=== PATIENT | male | born 1970 | race Caucasian/White ===

== ENCOUNTER 2021-12-24 20:40 | Inpatient (IN) | payer BC ==
[~2021-12-24] VITALS: Ht 182.9 cm; Wt 67.6 kg
[2021-12-24 20:40] VITALS: BP 140/94
--- NOTE | 2021-12-24 20:46 | NUR ---
PT RONEL AGUILAR. TAKEN TO BED 11
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
--- NOTE | 2021-12-24 20:55 | NUR ---
Dr. Cornejo examining patient.
[2021-12-24] MEDS ORDERED: NACL 0.9% 1,000 ML IV ONE ×2 (21:00→22:30)
[2021-12-24] MEDS ORDERED: MORPHINE SULFATE 2 MG/ML SYR IVP ONE (21:00)
--- NOTE | 2021-12-24 21:13 | NUR ---
KEG HEADER AT BEDSIDE
[2021-12-24 21:20] LABS: BASOPHILS % (AUTO) 0.1 % (0.0-2.0); HEMATOCRIT 53.8 % (36-52); HEMOGLOBIN 18.1 g/dL (12.0-18.0); LYMPHOCYTES # (AUTO) 0.3 K/uL (2.0-11.5); LYMPHOCYTES % (AUTO) 1.9 % (20.5-51.1); MEAN CORPUSCULAR HEMOGLOBIN 32 pg (27-31); MEAN CORPUSCULAR HGB CONC 34 g/dL (33-37); MEAN CORPUSCULAR VOLUME 94.9 fL (80-94); MONOCYTES # (AUTO) 1.2 K/uL (0.8-1.0); MONOCYTES % (AUTO) 6.3 % (1.7-9.3); NEUTROPHILS # (AUTO) 16.9 K/uL (1.8-7.7); NEUTROPHILS % (AUTO) 91.7 % (42.2-75.2); PLATELET COUNT (AUTO) 273 K/uL (140-450); RED BLOOD CELL COUNT(AUTO) 5.67 MIL/uL (4.20-6.10); RED CELL DISTRIBUTION WIDTH 14.6 % (11.6-13.7); WHITE BLOOD COUNT (AUTO) 18.4 K/uL (4.8-10.8)
[2021-12-24] MEDS ORDERED: VANCOMYCIN 1,000 MG in DEXTROSE 5% 250 ML IV ONE (21:45)
[2021-12-24] MEDS ORDERED: PIPERACILLIN/TAZOBACTAM 3.375 GM in DEXTROSE 5% 50 ML IV ONE (21:45)
[2021-12-24 21:49] LABS: ALBUMIN 4.4 g/dL (3.4-5.0); ASPARTATE AMINOTRANSFERASE 49 U/L (15-37); CARBON DIOXIDE 21.4 mmol/L (21-32); CHLORIDE 124 mmol/L (98-107); GFR ARICAN-AMERICAN 13 mL/min (>90); GLUCOSE 249 mg/dL (74-106); POTASSIUM 3.4 mmol/L (3.5-5.1)
[2021-12-24 21:52] LABS: CREATININE 5.9 mg/dL (0.6-1.3); SALICYLATE < 2.8 mg/dL (2.8-20.0); SODIUM SERUM 163 mmol/L (136-145); UREA NITROGEN, BLOOD 75 mg/dL (7-18)
[2021-12-24 21:53] LABS: ACETAMINOPHEN < 0.5 ug/ml (10-30)
--- NOTE | 2021-12-24 21:57 | NUR ---
XRAY AT BEDSIDE
[2021-12-24] MEDS ORDERED: PIPERACILLIN/TAZOBACTAM 3.375 GM VIAL IV ONE (22:09)
[2021-12-24] MEDS ORDERED: NACL 0.9% 500 ML IV ONE (22:35)
[2021-12-24] MEDS ORDERED: VANCOMYCIN 1,000 MG VIAL ONE (22:39)
--- NOTE | 2021-12-24 22:39 | NUR ---
RT AT BEDSIDE FOR ABG
--- NOTE | 2021-12-24 22:50 | NUR ---
VONDA/LUCAS COLLECTED AND WALKED TO LAB
--- NOTE | 2021-12-24 23:16 | NUR ---
ULTRASOUND AT BEDSIDE
[2021-12-24] MEDS ORDERED: SODIUM PHOS / POTASSIUM PHOS 1 PKT PDR PO PRN (23:30)
[2021-12-24] MEDS ORDERED: ACETAMINOPHEN 325 MG TAB PO PRN (23:30)
[2021-12-24] MEDS ORDERED: DEXTROSE 50% 50 ML SYR IVP PRN (23:30)
[2021-12-24] MEDS ORDERED: POTASSIUM CHLORIDE 10 MEQ TABER PO PRN (23:30)
[2021-12-24] MEDS ORDERED: DOCUSATE SODIUM 100 MG GELCAP PO PRN (23:30)
[2021-12-24] MEDS ORDERED: MAGNESIUM OXIDE 400 MG TAB PO PRN (23:30)
[2021-12-24] MEDS ORDERED: ONDANSETRON 4 MG/2 ML VIAL IM/IVP PRN (23:30)
--- NOTE | 2021-12-24 23:33 | NUR ---
PT TAKEN TO CT
--- NOTE | 2021-12-24 23:43 | NUR ---
PT RETURN FROM CT
--- NOTE | 2021-12-24 23:57 | NUR ---
INDEPENDENT SALES REPRESENTATIVE AT BEDSIDE FOR REDRAW
--- NOTE | 2021-12-25 00:03 | NUR ---
PT OXYGEN TITRATED TO 1 L/MIN. SPO2 @94%
--- NOTE | 2021-12-25 00:33 | NUR ---
# 16 FR Lewis catheter with 10 ml utilizing sterile technique. Immediate return of 500 ml YELLOW CLEAR urine noted. Bedside drainage bag placed below level of bladder. Urine sample collected and sent to lab. Pt tolerated procedure WELL.
[2021-12-25 00:41] LABS: MAGNESIUM 3.1 mg/dL (1.8-2.4); PHOSPHORUS 1.7 mg/dL (2.5-4.9)
[2021-12-25 01:59] LABS: ANION GAP 21.8 (8-16); POTASSIUM 3.8 mmol/L (3.5-5.1)
[2021-12-25 02:03] LABS: CREATININE 6.4 mg/dL (0.6-1.3)
[2021-12-25 02:05] LABS: BARBITURATE, URINE NEGATIVE ng/ml (NEG <=200); BENZODIAZEPINE, URINE POSITIVE ng/mL (NEG <=200); CANNABINOID, URINE NEGATIVE ng/mL (NEG <=50); COCAINE, URINE NEGATIVE ng/mL (NEG <=300); PHENCYCLIDINE SCREEN,URINE NEGATIVE ng/mL (NEG <=25)
[2021-12-25] MEDS: NACL 0.45% 1,000 ML IV SCH ×4 (02:05→22:05)
[2021-12-25 02:06] LABS: OPIATE, URINE NEGATIVE ng/mL (NEG <=2000); URINE TOTAL PROTEIN 131.6 mg/dL (0-12)
[2021-12-25] MEDS: NACL 0.9% 1,000 ML IV SCH ×2 (02:24→07:09)
[2021-12-25] MEDS: INSULIN LISPRO SLIDING SCALE 100 UNITS/ML VIAL SUBQ PRN ×4 (02:33→20:33)
--- NOTE | 2021-12-25 03:43 | NUR ---
Patient appears to be resting comfortably in bed. Vital Signs within normal limits. Respirations even and unlabored.
--- NOTE | 2021-12-25 05:27 | NUR ---
MORNING LABS DRAWN
[2021-12-25 05:57] LABS: ANION GAP 19.1 (8-16); CARBON DIOXIDE 21.2 mmol/L (21-32); CREATININE 5.8 mg/dL (0.6-1.3); POTASSIUM 4.3 mmol/L (3.5-5.1)
[2021-12-25 06:14] LABS: BASOPHILS % (AUTO) 0.2 % (0.0-2.0); HEMATOCRIT 49.3 % (36-52); HEMOGLOBIN 16.5 g/dL (12.0-18.0); LYMPHOCYTES # (AUTO) 1.3 K/uL (2.0-11.5); LYMPHOCYTES % (AUTO) 7.5 % (20.5-51.1); MEAN CORPUSCULAR HEMOGLOBIN 32 pg (27-31); MEAN CORPUSCULAR HGB CONC 34 g/dL (33-37); MEAN CORPUSCULAR VOLUME 96.3 fL (80-94); MONOCYTES # (AUTO) 1.6 K/uL (0.8-1.0); MONOCYTES % (AUTO) 8.8 % (1.7-9.3); NEUTROPHILS # (AUTO) 14.9 K/uL (1.8-7.7); NEUTROPHILS % (AUTO) 83.5 % (42.2-75.2); PLATELET COUNT (AUTO) 159 K/uL (140-450); RED BLOOD CELL COUNT(AUTO) 5.12 MIL/uL (4.20-6.10); RED CELL DISTRIBUTION WIDTH 14.8 % (11.6-13.7); WHITE BLOOD COUNT (AUTO) 17.8 K/uL (4.8-10.8)
--- NOTE | 2021-12-25 07:21 | NUR ---
Pt report given to ARJUN ALEGRIA. Transfer of care at this time.
--- NOTE | 2021-12-25 07:21 | NUR ---
REPORT RECIEVED FROM BEREKET BLOCK. ASSUMED CARE AT THIS TIME
--- NOTE | 2021-12-25 07:24 | NUR ---
Micheline floyd in [facility] - 12/25/21 at 0837 by PHSEP REPORT RECIEVED FROM BEREKET JI TRANSFER OF CARE AT THIS TIME
--- NOTE | 2021-12-25 07:45 | NUR ---
PT AT REST AND SLEEPING SUPINE POSITION. NO VISIBLE DISTRESS. RESPIRATOINS EVEN AND UNLABORED. PT ON SHIFT PRODUCTION SUPERVISOR, BED AT LOWEST POSITION, BED RAILS UP X2. SEIZURE PADS IN PLACE
[2021-12-25] MEDS: BLOOD GLUCOSE MONITORING 1 DEV DEV FS SCH ×4 (07:58→20:33)
--- NOTE | 2021-12-25 09:03 | NUR ---
PATIENT HAS BEEN SCREENED AND CATEGORIZED HIGH NUTRITION RISK. PATIENT WILL BE SEEN WITHIN 1-2 DAYS OF [address]ION. PINA NG RD
[2021-12-25] MEDS: MORPHINE SULFATE 2 MG/ML SYR IVP PRN ×2 (09:16→20:33)
[2021-12-25 11:02] VITALS: BP 152/90
--- NOTE | 2021-12-25 11:02 | NUR ---
PT RECEIVED FROM ER, PT AAOX2, VSS, NAD NOTED. PT HAS CHÁVEZ PLACED IN ER. PT RUNNING IV 0.45% NS @ 150CC. pT AWARE OF POC, SAFETY MEASURES IN PLACE.
[2021-12-25 13:06] LABS: ANION GAP 20.3 (8-16); POTASSIUM 4.3 mmol/L (3.5-5.1)
[2021-12-25 13:08] LABS: CREATININE 5.9 mg/dL (0.6-1.3)
[2021-12-25 14:25] LABS: CREATININE,URINE RANDOM 564 mg/dL (30-125)
[2021-12-25 14:27] LABS: URINE SODIUM, RANDOM 21 mmol/l (40-220)
[2021-12-25 14:32] LABS: APPEARANCE,URINE CLEAR (CLEAR); BILIRUBIN,URINE 1+ (NEGATIVE); BLOOD, URINE 3+ (NEGATIVE); COLOR,URINE BROWN (YELLOW); LEUKOCYTE ESTERASE ,URINE TRACE (NEGATIVE); NITRITE, URINE NEGATIVE (NEGATIVE); PH,URINE 5.5 (5.0-9.0); UGLUCOSE NEGATIVE (NEGATIVE)
[2021-12-25 14:48] LABS: OTHER CASTS, URINE None Seen /LPF (None Seen); WBC,URINE 0-5 /HPF (0-5)
[2021-12-25 14:49] LABS: BARBITURATE, URINE NEGATIVE ng/ml (NEG <=200)
[2021-12-25 14:50] LABS: BENZODIAZEPINE, URINE POSITIVE ng/mL (NEG <=200); CANNABINOID, URINE NEGATIVE ng/mL (NEG <=50); COCAINE, URINE NEGATIVE ng/mL (NEG <=300); OPIATE, URINE POSITIVE ng/mL (NEG <=2000); PHENCYCLIDINE SCREEN,URINE NEGATIVE ng/mL (NEG <=25)
--- NOTE | 2021-12-25 14:52 | NUR ---
DC PLANNIN YRS OLD MALE PATIENT WAS ADMITTED FROM HOME WITH A DX OF RENAL FAILURE, HYPERNATREMIA. PATIENT HAS NO MEDICAL HISTORY. CXR SHOWED NO RADIOGRAPHICALLY ACUTE CARDIOPULMONARY DISEASE. CT HEAD NEGATIVE FOR INTRACRANIAL BLEED. RENAL US SHOWED NO KIDNEY STONE OR HYDRONEPHROSIS. ADMINISTERED IVF, AND CONTINUED HOME MEDS. CONSULTED WITH TOP DISTRIBUTION EXECUTIVE. DC PLANNING TO RETURN HOME WHEN STABLE. CM TO FOLLOW Addendum: 12/27/21 at 1555 by Inna Moss RN DC PLANNING: SEEN BY TOP DISTRIBUTION EXECUTIVE DR SOLIZ DISCONTINUED IVF AND CONTINUE WITH STRICT I&O . CONTINUE IV ABX ROCPEHIN AND HOME MEDS. DC PLAN TO GO HOME WHEN STABLE. CM TO FOLLOW. Addendum: 12/29/21 at 1430 by Inna Moss RN DC PLANNING: FAXED AND CALLED [facility] [phone] SPOKE WITH JOSEE BIRMINGHAM THE SNF ORDERER PER MO WE CAN FAX IT TO [facility], [facility], [facility], [facility] AND JAS[facility] RAPHAEL CM TO FOLLOW Addendum: 01/03/22 at 1255 by Inna Moss RN DC PLANNING RECEIVED A CALL FROM OYSELYN AT [facility] STATED NO BED AVAILABLE TODAY AND SATURDAY WILL HAVE OPEN BED. MOR FROM [facility] WILL COME TO SEE PATIENT. MINERVA TO FOLLOW Addendum: 01/04/22 at 1036 by Nohemy Brothers CM DC PLANNING: MINERVA SPOKE WITH MINERVA TRIPP AT [facility] ([phone]), SHE WILL FAX A LIST OF CONTRACTED SNF'S TO REFER PATIENT TO. MINERVA SPOKE WITH KEITH AT [facility], SHE WAS UNABLE TO REACH THE PATIENTS SISTER TO CONFIRM DC PLAN AFTER SNF, STATES SHE WILL LET CM KNOW TOMORROW IF SHE HAS A BED, COULD NOT CONFIRM TODAY. CM WILL FOLLOW. Addendum: 01/04/22 at 1101 by Nohemy Brothers CM DC PLANNING: MOR FROM [facility] WILL BE ON PREMISES THIS MORNING TO SPEAK WITH THE PATIENT FOR POSSIBLE PLACEMENT. MINERVA WILL FOLLOW. Addendum: 01/04/22 at 1320 by Nohemy Brothers CM DC PLANNING: REPRESENTATIVES FROM [facility] SPOKE WITH THE PATIENT AND HAVE TENTATIVELY ACCEPTED HIM. MINERVA RECEIVED VM FROM JOSEE AT [facility] ASKING FOR A PEER TO PEER WITH THEIR MOLDER VACUUM, NUMBER [phone], INFORMATION GIVEN TO THE ATTENDING MD. MINERVA WILL FOLLOW. Addendum: 01/05/22 at 1346 by Nohemy Brothers CM DC PLANNING: PATIENT DECLINED BY [facility] DUE TO LACK OF BEDS. CM CALLED MINERVA TRIPP AT [facility] ([phone]) WHO ASKED THAT REFERRALS BE SENT TO THREE FACILITIES IN [place] THAT DEAL WITH DIFFICULT PLACEMENTS: [facility] WILL FAX REFERRALS TO SNF'S. CM WILL FOLLOW.
--- NOTE | 2021-12-25 14:53 | NUR ---
Dr. Quiroz at bedside, aware of critical results, will continue with fluids and place order for chem 10 draw at 6pm.
[2021-12-25 16:00] VITALS: BP 136/82
[2021-12-25 18:21] LABS: ANION GAP 17.2 (8-16); CARBON DIOXIDE 22.2 mmol/L (21-32); POTASSIUM 4.4 mmol/L (3.5-5.1)
[2021-12-25 18:24] LABS: CREATININE 5.1 mg/dL (0.6-1.3)
--- NOTE | 2021-12-25 18:29 | NUR ---
PT VSS, NAD NOTED, CRITICAL RESULTS REPORT TO DR. PURVIS, NO NEW ORDERS. PT CONTINUING WITH CHÁVEZ AND IV FLUIDS. SAFETY MEASURES IN PLACE.
--- NOTE | 2021-12-25 19:18 | NUR ---
ENDORSED CARE TO SOFTWARE IMPLEMENTATION SPECIALIST RN FOR FURTHER CARE.
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
[2021-12-25 20:00] VITALS: BP 120/68
--- NOTE | 2021-12-25 20:35 | NUR ---
PT COMPLAIN OF LEG PAIN 7/10 PAIN. MORPHINE GIVEN PER MD ORDER. NO OTHER COMPLAINS.
[2021-12-25] MEDS ORDERED: cefTRIAXone 1,000 MG VIAL ONE (21:00)
--- NOTE | 2021-12-25 21:10 | NUR ---
DOCTOR KAREN ORDERED. ROCEPHIN 1 GM DAILY. ROCEPHIN GIVEN TO PT PER MD ORDER. NO ADVERSE EFFECT NOTED. WILL CONTINUE TO MONITOR THE PT.
--- NOTE | 2021-12-25 23:30 | NUR ---
ENDORSED PT TO FLOOR WORKER TRANSFER BAY ARJUN MONTOYA FOR CONTINUITY OF CARE. PT IS TABLE.
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
[2021-12-26] VITALS: BP 118/65
--- NOTE | 2021-12-26 01:25 | NUR ---
DURING ROUNDS NURSING NOTED PATIENT REMAINED ASLEEP. NO NOTED DISTRESS. NO NOTED S/S TO INDICATE PAIN/DISCOMFORT. SIDE RAILS UP X 2 CALL LIGHT WITHIN REACH. [email or web address]
[2021-12-26] MEDS: NACL 0.45% 1,000 ML IV SCH ×3 (03:16→21:48)
--- NOTE | 2021-12-26 03:40 | NUR ---
PATIENT NOTED IN BED ASLEEP WITHOUT DISTRESS OR DISCOMFORT. SIDE RAILS UP X 2. CALL LIGHT WITHIN REACH. [email or web address]
[2021-12-26 04:00] VITALS: BP 120/71
--- NOTE | 2021-12-26 05:51 | NUR ---
PATIENT'S DRESSING WAS CHANGED AND CHARTED. PATIENT TOLERATED IT WELL. NO COMPLAINTS OF PAIN/DISCOMFORT. SIDE RAILS UP X 3. CALL LIGHT WITHIN REACH FOR ASSISTANCE AND NEEDS. [email or web address]
[2021-12-26 05:54] LABS: BASOPHILS % (AUTO) 0.2 % (0.0-2.0); EOSINOPHILS % (AUTO) 0.2 % (0.0-4.0); HEMATOCRIT 42.7 % (36-52); HEMOGLOBIN 14.5 g/dL (12.0-18.0); LYMPHOCYTES # (AUTO) 1.2 K/uL (2.0-11.5); LYMPHOCYTES % (AUTO) 8.3 % (20.5-51.1); MEAN CORPUSCULAR HEMOGLOBIN 32 pg (27-31); MEAN CORPUSCULAR HGB CONC 34 g/dL (33-37); MEAN CORPUSCULAR VOLUME 95.5 fL (80-94); MONOCYTES % (AUTO) 7.1 % (1.7-9.3); NEUTROPHILS # (AUTO) 12.1 K/uL (1.8-7.7); NEUTROPHILS % (AUTO) 84.2 % (42.2-75.2); PLATELET COUNT (AUTO) 134 K/uL (140-450); RED BLOOD CELL COUNT(AUTO) 4.47 MIL/uL (4.20-6.10); RED CELL DISTRIBUTION WIDTH 15.2 % (11.6-13.7); WHITE BLOOD COUNT (AUTO) 14.3 K/uL (4.8-10.8)
[2021-12-26 07:09] LABS: ANION GAP 19.3 (8-16); CARBON DIOXIDE 18.9 mmol/L (21-32); CREATININE 3.2 mg/dL (0.6-1.3); POTASSIUM 4.2 mmol/L (3.5-5.1)
--- NOTE | 2021-12-26 07:16 | NUR ---
CARLOTTA FROM LAB CALLED WITH CRITICAL LAB VALUES. SODIUM 159, BUN 83, AND CREATININE 3.2. THE LABS ARE TRENDING DOWN BUT BOTH PCP (KAREN) AND TURNTABLE MAN (ANN MARIE) WERE SENT MESSAGES OF THE LAB VALUES. [email or web address]
--- NOTE | 2021-12-26 07:29 | NUR ---
GAVE SHIFT REPORT TO ANGELICA BLOCK, PATIENT WAS STABLE DURING SHIFT REPORT. [email or web address]
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
[2021-12-26 08:00] VITALS: BP 128/72
[2021-12-26] MEDS: BLOOD GLUCOSE MONITORING 1 DEV DEV FS SCH ×4 (08:04→21:00)
--- NOTE | 2021-12-26 09:00 | NUR ---
NO SCHEDULED MEDS GIVEN. PT IS STABLE. NO DISTRESS NOTED. WILL CONTINUE TO MONITOR.
[2021-12-26] MEDS: DEXTROSE 5% 1,000 ML IV SCH (10:51)
[2021-12-26] MEDS: INSULIN LISPRO SLIDING SCALE 100 UNITS/ML VIAL SUBQ PRN ×2 (11:53→22:23)
--- NOTE | 2021-12-26 11:53 | NUR ---
BS CHECK WAS 220. ADMINISTERED 4 UNITS OF INSULIN SQ PER MD ORDERED.
[2021-12-26 12:00] VITALS: BP 132/71
--- NOTE | 2021-12-26 13:50 | NUR ---
CHECKED ON PATIENT. PT IS STABLE. NO DISTRESS NOTED. WILL CONTINUE TO MONITOR.
--- NOTE | 2021-12-26 14:08 | NUR ---
12/26/21 RD INITIAL ASSESSMENT COMPLETED PLEASE REFER TO NUTRITION ASSESSMENT UNDER CARE ACTIVITY FOR ESTIMATED NUTRITIONAL NEEDS. 1. RECOMMEND CCHO60 GM AND RENAL DIET 2. RECOMMEND PROSOURCE BID FOR WOUND HEALING 3. RD TO FOLLOW-UP 7 DAYS, LOW RISK REVIEWED BY PINA NG RD
[2021-12-26 16:00] VITALS: BP 134/78
--- NOTE | 2021-12-26 16:45 | NUR ---
CHANGED AND CLEANED PATIENT UP. KEPT C/D/I/.
--- NOTE | 2021-12-26 19:33 | NUR ---
ENDORSED TO HEALTH AND WELLNESS MANAGER NURSE OF CONTINUITY OF CARE. PT IS STABLE.
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
[2021-12-26 20:00] VITALS: BP 139/79
--- NOTE | 2021-12-26 21:30 | NUR ---
PATIENT WAS GIVEN INSULIN COVERAGE TO 225 GLUCOSE LEVEL. 4 UNITS. PATIENT TOLERATED IT WELL. NO S/S OF RESPIRATORY DISTRESS. NO S/S OF PAIN/DISCOMFORT. CALL LIGHT WITHIN REACH. SIDE RAILS X UP 2 FOR SAFETY AND ADJUSTMENTS. [email or web address]
--- NOTE | 2021-12-26 23:28 | NUR ---
DURING ROUNDS NURSE NOTE PATIENT IN BED ASLEEP. NO NOTED DISTRESS/PAIN. NO NOTED RESPIRATORY DISTRESS. KEPT CLEAN AND DRY NURSING WILL FREQUENT ROOM FOR ASSISTANCE. [email or web address]
[2021-12-27] VITALS: BP 132/72
--- NOTE | 2021-12-27 01:15 | NUR ---
PATIENT IN BED ASLEEP. NO NOTED DISTRESS/PAIN. NO NOTED RESPIRATORY DISTRESS. KEPT CLEAN AND DRY NURSING WILL FREQUENT ROOM FOR ASSISTANCE. [email or web address]
--- NOTE | 2021-12-27 03:42 | NUR ---
PATIENT IN BED ASLEEP. NO NOTED DISTRESS/PAIN. NO NOTED RESPIRATORY DISTRESS. KEPT CLEAN AND DRY NURSING WILL CALL LIGT WITHIN REACH FOR ASSISTANCE. [email or web address]
[2021-12-27 04:00] VITALS: BP 132/82
[2021-12-27 05:24] LABS: BASOPHILS % (AUTO) 0.3 % (0.0-2.0); EOSINOPHILS # (AUTO) 0.1 K/uL (0-0.4); EOSINOPHILS % (AUTO) 1.5 % (0.0-4.0); HEMOGLOBIN 13.4 g/dL (12.0-18.0); LYMPHOCYTES # (AUTO) 1.3 K/uL (2.0-11.5); LYMPHOCYTES % (AUTO) 13.1 % (20.5-51.1); MEAN CORPUSCULAR HEMOGLOBIN 32 pg (27-31); MEAN CORPUSCULAR HGB CONC 34 g/dL (33-37); MEAN CORPUSCULAR VOLUME 94.1 fL (80-94); MONOCYTES # (AUTO) 0.8 K/uL (0.8-1.0); MONOCYTES % (AUTO) 8.4 % (1.7-9.3); NEUTROPHILS # (AUTO) 7.4 K/uL (1.8-7.7); NEUTROPHILS % (AUTO) 76.7 % (42.2-75.2); PLATELET COUNT (AUTO) 111 K/uL (140-450); RED BLOOD CELL COUNT(AUTO) 4.15 MIL/uL (4.20-6.10); RED CELL DISTRIBUTION WIDTH 14.4 % (11.6-13.7); WHITE BLOOD COUNT (AUTO) 9.7 K/uL (4.8-10.8)
--- NOTE | 2021-12-27 05:59 | NUR ---
PATIENT IN BED ASLEEP AFTER CLEANING PATIENT AND BED. URINE WAS EMPTIED AT OVER 2000 MLS. NO NOTED DISTRESS/PAIN. NO NOTED RESPIRATORY DISTRESS. KEPT CLEAN AND DRY NURSING WILL CALL LIGHT WITHIN REACH FOR ASSISTANCE. [email or web address]
[2021-12-27 06:17] LABS: ANION GAP 11.5 (8-16); CARBON DIOXIDE 22.2 mmol/L (21-32); CREATININE 1.1 mg/dL (0.6-1.3); POTASSIUM 3.7 mmol/L (3.5-5.1)
[2021-12-27] MEDS: BLOOD GLUCOSE MONITORING 1 DEV DEV FS SCH ×4 (07:03→21:55)
[2021-12-27] MEDS: DEXTROSE 5% 1,000 ML IV SCH (07:04)
--- NOTE | 2021-12-27 07:37 | NUR ---
MANUAL SHIFT REPORT WAS GIVEN TO SALES OPERATIONS ANALYSTRICKY SANTAMARIA FOR ANGELICA BLOCK TO TAKE OVER CARE FOR THIS PATIENT. [email or web address]
--- NOTE | 2021-12-27 07:44 | NUR ---
GAVE SHIFT REPORT TO ANGELICA BLOCK, PATIENT WAS STABLE DURING CHANGE OF SHIFT. [email or web address]
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
[2021-12-27] MEDS: NACL 0.45% 1,000 ML IV SCH (07:52)
[2021-12-27 08:00] VITALS: BP 148/83
--- NOTE | 2021-12-27 09:00 | NUR ---
NO SCHEDULED MEDS GIVEN. PT IS STABLE. NO DISTRESS NOTED. WILL CONTINUE TO MONITOR.
[2021-12-27] MEDS: INSULIN LISPRO SLIDING SCALE 100 UNITS/ML VIAL SUBQ PRN (11:43)
--- NOTE | 2021-12-27 11:43 | NUR ---
BS CHECK WAS 177. ADMINISTERED 2 UNITS OF INSULIN SQ PER MD ORDERED
[2021-12-27 12:00] VITALS: BP 141/94
[2021-12-27] MEDS: GAUZE TP SCH (12:15)
[2021-12-27] MEDS: SILVER SULFADIAZINE 1% 50 GM JAR TP SCH (12:15)
--- NOTE | 2021-12-27 13:45 | NUR ---
WOUND CARE NURSE AT PATIENT'S BEDSIDE.
[2021-12-27] MEDS: MORPHINE SULFATE 2 MG/ML SYR IVP PRN (13:46)
--- NOTE | 2021-12-27 14:00 | NUR ---
ENDORSED REPORT TO UMAIR CRENSHAW FOR CONTINUITY OF CARE. PT IS STABLE.
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
[2021-12-27 16:00] VITALS: BP 132/82
--- NOTE | 2021-12-27 17:32 | NUR ---
BLOOD SUGAR 155 - REFUSED 2UNITS
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
[2021-12-27 20:00] VITALS: BP 132/82
--- NOTE | 2021-12-27 20:00 | NUR ---
Patient's Plan of Care was discussed and reviewed with ANTONIO DÍAZ.
[2021-12-28] VITALS: BP 152/83
--- NOTE | 2021-12-28 | NUR ---
WANTS THE F/C TO BE TAKEN OUT. EXPLAINED THAT HE NEEDS IT SO THAT HE WILL NOT GET WET. STILL WITH OCC ASIONAL CONFUSION.
[2021-12-28] MEDS: HYDROcodone/APAP 5/325 MG 1 TAB TAB PO PRN ×2 (00:34→12:03)
[2021-12-28] MEDS ORDERED: ZOLPIDEM 5 MG TAB PO PRN (00:45)
--- NOTE | 2021-12-28 01:18 | NUR ---
UNABLE TO SLEEP, MEDICATED WITH AMBIEN PER MD ORDER.
--- NOTE | 2021-12-28 02:18 | NUR ---
SLEEPING COMFORTABLY IN BED, RESPIRATION EVEN AND UNLABORED.
[2021-12-28 04:00] VITALS: BP 141/80
--- NOTE | 2021-12-28 04:00 | NUR ---
CONFUSED, REQUESTING FOR URINAL. EXPLAINED THAT HE DOES NOT NEED ONE BECAUSE HE HAS A CHÁVEZ CATHETER.
[2021-12-28 06:07] LABS: BASOPHILS % (AUTO) 0.3 % (0.0-2.0); EOSINOPHILS # (AUTO) 0.2 K/uL (0-0.4); EOSINOPHILS % (AUTO) 2.1 % (0.0-4.0); HEMATOCRIT 41.3 % (36-52); HEMOGLOBIN 14.2 g/dL (12.0-18.0); LYMPHOCYTES # (AUTO) 1.2 K/uL (2.0-11.5); LYMPHOCYTES % (AUTO) 13.3 % (20.5-51.1); MEAN CORPUSCULAR HEMOGLOBIN 33 pg (27-31); MEAN CORPUSCULAR HGB CONC 34 g/dL (33-37); MEAN CORPUSCULAR VOLUME 94.6 fL (80-94); MONOCYTES # (AUTO) 0.8 K/uL (0.8-1.0); MONOCYTES % (AUTO) 9.2 % (1.7-9.3); NEUTROPHILS # (AUTO) 6.8 K/uL (1.8-7.7); NEUTROPHILS % (AUTO) 75.1 % (42.2-75.2); PLATELET COUNT (AUTO) 116 K/uL (140-450); RED BLOOD CELL COUNT(AUTO) 4.37 MIL/uL (4.20-6.10); RED CELL DISTRIBUTION WIDTH 13.7 % (11.6-13.7); WHITE BLOOD COUNT (AUTO) 9.1 K/uL (4.8-10.8)
[2021-12-28 06:08] LABS: ANION GAP 11.6 (8-16); CARBON DIOXIDE 24.2 mmol/L (21-32); CREATININE 0.9 mg/dL (0.6-1.3); POTASSIUM 3.8 mmol/L (3.5-5.1)
[2021-12-28] MEDS: BLOOD GLUCOSE MONITORING 1 DEV DEV FS SCH ×4 (06:57→22:41)
--- NOTE | 2021-12-28 07:00 | NUR ---
CONDITION REMAIN STABLE. WILL ENDORSE TO AM SHIFT NURSE FOR CONTINUITY OF CARE.
--- NOTE | 2021-12-28 07:30 | NUR ---
RECEIVED REPORT FROM NIGHTSHIFT NURSE. PT A/O X2. NO SOB OR RESPIRATORY DISTRESS. ON RA. STRICT I&O. DENIES PAIN. IV TO SL. NEEDS ALL MET AT THIS TIME. SAFETY MEASURES IN PLACE.
[2021-12-28 08:00] VITALS: BP 136/72
--- NOTE | 2021-12-28 10:08 | NUR ---
PT SLEEPING. RR EVEN & UNLABORED. HOB ELEVATED. SAFETY MEASURES IN PLACE.
[2021-12-28] MEDS: INSULIN LISPRO SLIDING SCALE 100 UNITS/ML VIAL SUBQ PRN ×3 (11:36→22:47)
[2021-12-28] MEDS: GAUZE TP SCH (12:03)
[2021-12-28] MEDS: SILVER SULFADIAZINE 1% 50 GM JAR TP SCH (12:04)
[2021-12-28] MEDS ORDERED: [UNRECOGNIZED DRUG - CODE] TP (12:23)
[2021-12-28] MEDS ORDERED: HUMSLIDE SUBQ (12:23)
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
[2021-12-28] MEDS: GABAPENTIN 300 MG CAP PO SCH (13:01)
[2021-12-28 16:00] VITALS: BP 145/87
--- NOTE | 2021-12-28 19:30 | NUR ---
REPORT GIVEN TO NIGHTSHIFT NURSE FOR CONTINUITY OF CARE.
[2021-12-28 20:00] VITALS: BP 161/68
[2021-12-29 04:00] VITALS: BP 149/95
[2021-12-29 06:17] LABS: ANION GAP 11.7 (8-16); CARBON DIOXIDE 24.1 mmol/L (21-32); POTASSIUM 3.8 mmol/L (3.5-5.1)
[2021-12-29 06:19] LABS: BASOPHILS % (AUTO) 0.1 % (0.0-2.0); EOSINOPHILS # (AUTO) 0.1 K/uL (0-0.4); EOSINOPHILS % (AUTO) 1.4 % (0.0-4.0); HEMATOCRIT 42.8 % (36-52); HEMOGLOBIN 14.8 g/dL (12.0-18.0); LYMPHOCYTES % (AUTO) 8.9 % (20.5-51.1); MEAN CORPUSCULAR HEMOGLOBIN 32 pg (27-31); MEAN CORPUSCULAR HGB CONC 35 g/dL (33-37); MEAN CORPUSCULAR VOLUME 93.7 fL (80-94); MONOCYTES # (AUTO) 0.9 K/uL (0.8-1.0); MONOCYTES % (AUTO) 8.7 % (1.7-9.3); NEUTROPHILS # (AUTO) 8.7 K/uL (1.8-7.7); NEUTROPHILS % (AUTO) 80.9 % (42.2-75.2); PLATELET COUNT (AUTO) 141 K/uL (140-450); RED BLOOD CELL COUNT(AUTO) 4.57 MIL/uL (4.20-6.10); RED CELL DISTRIBUTION WIDTH 13.8 % (11.6-13.7); WHITE BLOOD COUNT (AUTO) 10.8 K/uL (4.8-10.8)
[2021-12-29] MEDS: BLOOD GLUCOSE MONITORING 1 DEV DEV FS SCH ×4 (06:41→22:04)
[2021-12-29] MEDS: INSULIN LISPRO SLIDING SCALE 100 UNITS/ML VIAL SUBQ PRN ×4 (06:44→22:11)
--- NOTE | 2021-12-29 07:30 | NUR ---
PT A/O X3. ABLE TO MAKE NEEDS KNOWN. NO SOB OR RESPIRATORY DISTRESS. ON RA. DENIES PAIN AT THIS TIME. IV TO SL. CHÁVEZ VIA GRAVITY. NEEDS ALL MET AT THIS TIME. SAFETY MEASURES IN PLACE.
[2021-12-29] MEDS: GABAPENTIN 300 MG CAP PO SCH (08:47)
[2021-12-29] MEDS: HYDROcodone/APAP 5/325 MG 1 TAB TAB PO PRN ×2 (11:45→16:45)
--- NOTE | 2021-12-29 11:45 | NUR ---
PRN NORCO GIVEN. SEE EMAR AND PAIN ASSESSMENT & REASSESSMENT.
[2021-12-29] MEDS: SILVER SULFADIAZINE 1% 50 GM JAR TP SCH (13:28)
[2021-12-29] MEDS: GAUZE TP SCH (13:28)
[2021-12-29 16:00] VITALS: BP 142/88
--- NOTE | 2021-12-29 16:45 | NUR ---
PRN NORCO GIVEN. SEE PAIN ASSESSMENT AND REASSESSMENT.
--- NOTE | 2021-12-29 18:51 | NUR ---
PT STABLE. DRESSING C/D/I. DENIES PAIN. ORAL FLUIDS PROVIDED. NEEDS ALL MET AT THIS TIME. ALL SAFETY MEASURES IN PLACE.
--- NOTE | 2021-12-29 19:20 | NUR ---
REPORT GIVEN TO NIGHTSHIFT NURSE FOR CONTINUITY OF CARE.
[2021-12-29 20:00] VITALS: BP 125/82
--- NOTE | 2021-12-29 22:50 | NUR ---
Transfer of care to [facility] per request. Bassam Arevalo RN
--- NOTE | 2021-12-29 22:54 | NUR ---
RECEIVED PATIENT FROM GIOVANNI BLOCK, PATIENT WAS STABLE AT THE TIME PATIENT SWAP. PATIENT ALERT AND ORIENT IN THE BED. REQUEST A WARM BLANKET. PATIENT IS UNABLE TO INFORM OF WHY HE IS IN THE HOSPITAL. SIDE RAILS UP X 2 AND CALL LIGHT IN REACH. FOR ASSISTANCE. IV SITE CLEAN AND PATENT. PATIENT IS AWARE HOW TO USE THE CALL LIGHT. [email or web address]
--- NOTE | 2021-12-30 01:27 | NUR ---
NURSING NOTED PATIENT IN BED ASLEEP. NO NOTED S/S OF PAIN/DISCOMFORT. NO NOTED S/S OF RESPIRATORY DISTRESS. SIDE RAILS UP X 3 FOR SAFETY AND ADJUSTMENTS. CALL LIGHT WITHIN REACH. [email or web address]
--- NOTE | 2021-12-30 03:00 | NUR ---
PATIENT WAS NOTED IN BED ASLEEP. PATIENT'S CHEST NOTED RISING AND FALLING WITHOUT DISTRESS. NO NOTED S/S OF PAIN/DISCOMFORT. SIDE RAILS UP X 3 FOR SAFETY. CALL LIGHT WITHIN REACH FOR ASSISTANCE. [email or web address]
--- NOTE | 2021-12-30 05:24 | NUR ---
DURING NURSING ROUNDS, PATIENT WAS NOTED IN BED ASLEEP. PATIENT'S CHEST NOTED RISING AND FALLING WITHOUT DISTRESS. NO NOTED S/S OF PAIN/DISCOMFORT. SIDE RAILS UP X 3 FOR SAFETY. CALL LIGHT WITHIN REACH FOR ASSISTANCE. [email or web address]
--- NOTE | 2021-12-30 07:19 | NUR ---
ENDORSED PATIENT TO CHAR BLOCK FOR CONTINUITY OF CARE. PATIENT WAS STABLE AT THE CHANGE OF SHIFT. [email or web address]
[2021-12-30 07:25] LABS: BASOPHILS % (AUTO) 0.1 % (0.0-2.0); EOSINOPHILS # (AUTO) 0.3 K/uL (0-0.4); EOSINOPHILS % (AUTO) 2.4 % (0.0-4.0); HEMATOCRIT 42.1 % (36-52); HEMOGLOBIN 14.2 g/dL (12.0-18.0); LYMPHOCYTES # (AUTO) 1.2 K/uL (2.0-11.5); LYMPHOCYTES % (AUTO) 11.7 % (20.5-51.1); MEAN CORPUSCULAR HEMOGLOBIN 32 pg (27-31); MEAN CORPUSCULAR HGB CONC 34 g/dL (33-37); MONOCYTES # (AUTO) 1.1 K/uL (0.8-1.0); MONOCYTES % (AUTO) 10.4 % (1.7-9.3); NEUTROPHILS % (AUTO) 75.4 % (42.2-75.2); PLATELET COUNT (AUTO) 162 K/uL (140-450); RED BLOOD CELL COUNT(AUTO) 4.43 MIL/uL (4.20-6.10); RED CELL DISTRIBUTION WIDTH 13.6 % (11.6-13.7); WHITE BLOOD COUNT (AUTO) 10.6 K/uL (4.8-10.8)
[2021-12-30] MEDS: BLOOD GLUCOSE MONITORING 1 DEV DEV FS SCH ×4 (07:43→20:49)
[2021-12-30 07:59] LABS: ANION GAP 14.7 (8-16); CARBON DIOXIDE 22.4 mmol/L (21-32); CREATININE 0.9 mg/dL (0.6-1.3); POTASSIUM 4.1 mmol/L (3.5-5.1)
[2021-12-30] MEDS: GABAPENTIN 300 MG CAP PO SCH (08:44)
[2021-12-30 11:06] VITALS: BP 131/68
[2021-12-30] MEDS: INSULIN LISPRO SLIDING SCALE 100 UNITS/ML VIAL SUBQ PRN ×3 (11:44→20:50)
[2021-12-30] MEDS: GAUZE TP SCH (13:00)
[2021-12-30] MEDS: SILVER SULFADIAZINE 1% 50 GM JAR TP SCH (13:00)
[2021-12-30 17:04] VITALS: BP 137/90
--- NOTE | 2021-12-30 18:35 | NUR ---
0730 Pt. in bed, call light in reach, no distress 1200 Pt. with no distress, wound care done to keita on legs, pt. denies pain 1400 Pt. sleeping, call light in reach 1800 Pt. needs met, vss, no distress this shift, dressings to wounds d/i, call light in reach
[2021-12-31 04:40] VITALS: BP 129/85
--- NOTE | 2021-12-31 07:30 | NUR ---
RECEIVED BEDSIDE REPORT FROM HOUSEKEEPER AND LAUNDRY ASSISTANT NURSE, FOR CONTINUOUS OF CARE. PT RESTING, NO DISTRESS NOTED, AWAKE ALERT, ABLE TO LET NEEDS KNOWN, IV TO RIGHT FA 22G PATENT INTACT, SL. PT ON ROOM AIR, NO SOB NOTED, INITIAL ASSESSMENT DONE, ALL SAFETY PRECAUTION MET, CALL LIGHT WITHIN REACH, WILL CONTINUE TO MONITOR.
[2021-12-31 08:00] VITALS: BP 144/80
[2021-12-31] MEDS: BLOOD GLUCOSE MONITORING 1 DEV DEV FS SCH ×4 (08:02→20:47)
[2021-12-31] MEDS: GABAPENTIN 300 MG CAP PO SCH (08:30)
[2021-12-31] MEDS: INSULIN LISPRO SLIDING SCALE 100 UNITS/ML VIAL SUBQ PRN ×2 (12:17→20:48)
[2021-12-31] MEDS: SILVER SULFADIAZINE 1% 50 GM JAR TP SCH (12:20)
[2021-12-31] MEDS: GAUZE TP SCH (12:20)
[2021-12-31] MEDS: MORPHINE SULFATE 2 MG/ML SYR IVP PRN (13:31)
--- NOTE | 2021-12-31 13:31 | NUR ---
PT C/O PAIN DURING DRESSING CHANGED, PAIN MEDICATION GIVEN, PT TOLERATED WELL, DRESSING CHANGED. WILL CONTINUE OT MONITOR.
[2021-12-31 16:00] VITALS: BP 133/83
--- NOTE | 2021-12-31 19:30 | NUR ---
ENDORSED PT TO SLITTER AND REWINDER NURSE FOR CONTINUOUS OF CARE.
--- NOTE | 2021-12-31 19:31 | NUR ---
RECEIVED ENDORSEMENT OF PATIENT FROM JASPREET BLOCK, PATIENT WAS STABLE AT CHANGE OF SHIFT. PATIENT IN BED ALERT AND ORIENTED X 4. DRESSING FOR ALL WOUNDS WERE CHANGED AND CLEAN. PATIENT WAS KEPT CLEAN AND DRY. PATIENT WAS ABLE TO VERBALIZE PAIN LEVEL WHICH WAS A 0 TA THIS TIME. CH[place]VEZ INTACT NO NOTED LEAKING. BED LOWERED TO THE LOWEST LEVEL FOR SAFETY. CALL LIGHT WITH IN REACH. PATIENT IS AWARE HOW TO USE THE CALL LIGHT FOR ASSISTANCE AND WANTS. SIDE RAILS UP X 3. [email or web address]
--- NOTE | 2021-12-31 21:45 | NUR ---
PATIENT HAD A BOWEL MOVEMENT. WAS CLEANED AND KEPT DRY. [email or web address]
--- NOTE | 2021-12-31 23:03 | NUR ---
PATIENT NOTED IN BED ASLEEP. WAS ABLE TO TAKE ORAL MEDICATION WITHOUT INCIDENT. NO NOTE S/S OF PAIN/DISCOMFORT. NO NOTED RESPIRATORY DISTRESS. BED AT LOWEST LEVEL. SIDE RAILS UP X 2 FOR SAFETY AND ADJUSTMENT FOR COMFORT. CALL LIGHT WITHIN REACH FOR ASSISTANCE. [email or web address]
--- NOTE | 2022-01-01 | NUR ---
Patient's Plan of Care was discussed and reviewed with ARJUN PATEL
--- NOTE | 2022-01-01 01:43 | NUR ---
PATIENT REMAINS IN BED ASLEEP. BED ALARM ON AND WORKING. NO NOTED S/S OF PAIN/DISCOMFORT. NO NOTED RESPIRATORY DISTRESS. SIDE RAILS UP X 3. CALL LIGHT WITHIN REACH. BED AT THE LOWEST LEVEL. [email or web address]
--- NOTE | 2022-01-01 03:12 | NUR ---
PATIENT COMPLAINED OF PAIN TO HIS PENIS. NURSING NOTED REDDISH ORANGE COLOR TO CHÁVEZ DRAINAGE BAG. NOTIFIED MD FOR ADVISEMENT. PATIENT DENIES PULLING ON THE CATH. NURSING REINFORCED THE CATH TO HIS RIGHT LEG TO PREVENT TUGGING. NURSING WILL AWIT MD CALL BACK FOR ORDERS. [email or web address]
[2022-01-01 04:00] VITALS: BP 149/85
--- NOTE | 2022-01-01 05:21 | NUR ---
IRRIGATED CHÁVEZ CATH WITH SALINE WITH 100MLS. COLOR CHANGED BACK TO YELLOW CLEAR URINE. PATIENT STATES HE WANT IT OUT TO IRRITATION AND DISCOMFORT. COVERING RN CARMINE WILL GIVE PAIN PRN. NURSING WILL REPORT TO AM SHIFT TO FOLLOW UP WITH THE DOCTOR. [email or web address]
[2022-01-01] MEDS: MORPHINE SULFATE 2 MG/ML SYR IVP PRN (05:35)
[2022-01-01] MEDS: BLOOD GLUCOSE MONITORING 1 DEV DEV FS SCH ×4 (07:09→21:42)
--- NOTE | 2022-01-01 07:10 | NUR ---
ENDORSE PATIENT TO [facility] EMERGENCY ROOM CLERK, PATIENT WAS STABLE AT THE CHANGE OF SHIFT. [email or web address]
--- NOTE | 2022-01-01 07:11 | NUR ---
RECEIVED REPORT FROM REPAIR SUPERVISOR NURSE FOR CONTINUITY OF CARE. PT IS AWAKE. A7O4, ABLE TO COMMUNICATE NEEDS. RESPIRATIONS EVEN AND UNLABORED ON RA. NO DISTRESS NOTED. CHÁVEZ CATHETER IN PLACE. IV SITE ON RFA, SL. NOTED BANDAGES ON LEFT ARM, LEG FOOT AND RIGHT FOOT DRY AND INTACT. CALL LIGHT WITHIN REACH. SAFETY PRECAUTIONS IN PLACE. WILL CONTINUE TO MONITOR.
[2022-01-01 08:00] VITALS: BP 138/93
[2022-01-01] MEDS: GABAPENTIN 300 MG CAP PO SCH (08:47)
--- NOTE | 2022-01-01 08:57 | NUR ---
ADMINISTERED SCHEDULED MORNING MEDS. PT TEACHING MEDS GIVEN. PT VERBALIZED UNDERSTANDING. PHYSICAL THERAPIST NOW AT BEDSIDE.
[2022-01-01] MEDS: INSULIN LISPRO SLIDING SCALE 100 UNITS/ML VIAL SUBQ PRN ×3 (12:16→21:42)
[2022-01-01 12:17] LABS: ANION GAP 14.2 (8-16); CARBON DIOXIDE 24.6 mmol/L (21-32); POTASSIUM 3.8 mmol/L (3.5-5.1)
[2022-01-01 12:19] LABS: BASOPHILS % (AUTO) 0.3 % (0.0-2.0); EOSINOPHILS # (AUTO) 0.2 K/uL (0-0.4); EOSINOPHILS % (AUTO) 2.5 % (0.0-4.0); HEMATOCRIT 41.6 % (36-52); HEMOGLOBIN 14.6 g/dL (12.0-18.0); LYMPHOCYTES # (AUTO) 1.1 K/uL (2.0-11.5); MEAN CORPUSCULAR HEMOGLOBIN 33 pg (27-31); MEAN CORPUSCULAR HGB CONC 35 g/dL (33-37); MEAN CORPUSCULAR VOLUME 93.6 fL (80-94); MONOCYTES # (AUTO) 0.9 K/uL (0.8-1.0); MONOCYTES % (AUTO) 10.5 % (1.7-9.3); NEUTROPHILS # (AUTO) 5.9 K/uL (1.8-7.7); NEUTROPHILS % (AUTO) 72.7 % (42.2-75.2); PLATELET COUNT (AUTO) 243 K/uL (140-450); RED BLOOD CELL COUNT(AUTO) 4.44 MIL/uL (4.20-6.10); RED CELL DISTRIBUTION WIDTH 13.4 % (11.6-13.7); WHITE BLOOD COUNT (AUTO) 8.1 K/uL (4.8-10.8)
--- NOTE | 2022-01-01 12:37 | NUR ---
PHYSICAL THERAPY CO-SIGN The Physical Therapy Progress Notes documented by Filleter have been reviewed. Reviewed/Co-Signed by: Trang Lopes Documentation Done by: MICHELA ARREDONDO PTA Addendum: 01/01/22 at 1237 by Trang Lopes PT Amended: Links added.
--- NOTE | 2022-01-01 12:45 | NUR ---
DID ROUNDS. PT EATING LUNCH. NO DISTRESS NOTED. DENIES PAIN. CALL LIGHT WITHIN REACH. SAFETY PRECAUTIONS IN PLACE. WILL CONTINUE TO MONITOR.
[2022-01-01] MEDS: GAUZE TP SCH (13:05)
--- NOTE | 2022-01-01 13:05 | NUR ---
WOUND DRESSING CHANGE DONE. PT TOLERATED WELL. WILL CONTINUE TO MONITOR.
--- NOTE | 2022-01-01 13:14 | NUR ---
RECEIVED ORDER FROM MORPHINE FOR SEVERE PAIN.
--- NOTE | 2022-01-01 15:30 | NUR ---
DISCHARGE PLANNING WILLIAM FAXED PATIENT'S INFORMATION AND CLINICAL PACKET TO [facility] AT WITH COMPLETED CONFIRMATION AT ABOUT 15:00. WILLIAM CALL YOSELYN AT [facility] TO CONFIRM SHE RECEIVED PACKET. PER YOSELYN SHE REVIEW AND DISCUSS PATIENT INFORMATION WELL PATIENT'S SKILLS NEEDS WITH HER TREAD BUILDER AND NOW WITH MINERVA AND WILLIAM. HOWEVER; REPORTED THAT HER TREAD BUILDER WILL NEED FOR PATIENT TO HAVE A DC PLAN FOR AFTER SKILL SERVICES ARE COMPLETED WITH THEIR SNF AGENCY. WILLIAM INFORMED YOSELYN THAT PATIENT HAS A SISTER THAT LIVES IN [place] AND THAT PATIENT HAS REPORTED THAT HE WILL BE GETTING ASSISTANCE FROM HIS SISTER MADELEINE LUCAS , [address] [id number] AFTER HIS DC. YOSELYN STATED THAT SHE WILL LIKE TO MAKE SURE THAT CONTACT WITH FAMILY CAN BE ESTABLISHED BEFORE SNF ADMISSION, THEREFORE; REQUESTED FROM WILLIAM TO PROVIDE WITH PATIENT'S SISTER CONTACT NUMBER AND HOME ADDRESS. KEITH STATED THAT SHE WILL REACH OUT TO FAMILY AND WILL FOLLOW UP WITH CM/WILLIAM. WILLIAM WILL FOLLOW UP NEEDED. WILLIAM ATTEMPTED TO CALL PATIENTS SISTER MADELEINE LUCAS AT . NO ANSWER PHONE NUMBER SEEMS TO BE DISCONNECTED OR NO LONGER ON SERVICE. WILL[facility] AND REQUESTED TO DISPATCHER SHANDA TO MAKE A FAMILY WELFARE CHECK TO INFORM FAMILY OF PATIENT BEEN AT [facility]. P. D DISPATCHER TOOK INFORMATION AND WILL BE SENDING A P.D OFFICER AND WILL CONTACT THESE MANAGEMENT TRAINEE ABOUT OUTCOME. WILLIAM WILL FOLLOW UPS NEEDED. Addendum: 01/02/22 at 1521 by Jane DIOP DISCHARGE PLANNING SW GOT A VOICE MAIL MSG FROM MIKALA Arellano. OFFICER BEN STATING THAT HE WHEN INTO THE HOME ADDRESS OF MADELEINE LUCAS AT [address] [address] LAST NIGHT ABOUT 2X. THE FIRST TIME AT ABOUT 18:00 OFFICER BEN DID NOT FIND ANYONE IN THE HOME. SECOND TIME AT ABOUT 21:00 WAS ABLE TO FIND PATIENT'S SISTER MADELEINE LUCAS. OFFICER WAS ABLE TO LET HER KNOW THAT PATIENT WAS IN [facility] AND THAT SHE NEEDS TO COMMUNICATE WITH STAFF AND SW [facility]. SW CALL PATIENTS' SISTER MADELEINE LUCAS AT TO DISCUSS PATIENT'S INFORMATION AND CURRENT STATUS. PER MADELEINE SHE WAS INFORMED BY MIKALA Ayoub THAT PATIENT WAS IN THE HOSPITAL AND THAT SHE NEEDED TO CALL TO COMMUNICATE WITH STAFF AND SW ABOUT HIS SITUATION. SW DISCUSS WITH PATIENT'S SISTER ABOUT PATIENT NEEDING FAMILY SUPPORT AND PLACE TO STAY WHEN READY FOR DISCHARGE FROM [facility]. SW ASK HER IF SHE WILL BE WILLING TO TAKE PATIENT HOME WITH HER TO CONTINUE PROVIDING ASSISTANCE WITH HIS MEDICAL NEEDS. PER PATIENT'S SISTER SHE BELIEVES THAT PATIENT NEEDS TO CONTINUE WITH SOME PHYSICAL THERAPY OR SNF LEVEL CARE FOR SOME TIME BEFORE HE IS ABLE TO BE DISCHARGE HOME OR A LOWER LEVEL OF CARE. PER SISTER SHE REQUESTED TO HAVE DOCTOR SPEAK TO HER AND PATIENT ABOUT HIS NEEDS AND STATED THAT SHE WILL BE ABLE TO ASSIST PATIENT IN GETTING A PLACE TO STAY AFTER DISCHARGE FROM [facility] OR SNF BUT WILL NOT BE ABLE TO TAKE PATIENT HOME TO LIVE WITH HER. DUE TO HAVING SMALL CHILDREN IN HER HOME AND HAVING LONG HISTORY WITH PATIENT. PER SISTER SHE IS HIS EMERGENCY CONTACT AND IS WILLING TO PROVIDE HIM WITH EMOTIONAL AND SOME FINANCIAL HELP BUT CAN NOT BE FULL FINANCIAL RESPONSIBLE FOR PATIENT. STATED THAT IS WHY HE HAS INSURANCE I HAVE A FAMILY AND CAN'T PAY ALL HIS BILLS IM SORRY" SW THANK HER FOR HER WILLINGNESS TO SPEAK TO SW AND WORK WITH [facility]/STAFF. PATIENT'S SISTER THANKED SW FOR THE INFORMATION PROVIDED AND STATED THAT SHE WILL BE WILLING ASSIST AND WILL CONTINUE COMMUNICATING WITH SW/CM. SW THANK HER ENDED THE CALL AND, WILL FOLLOW UP NEEDED. Addendum: 01/10/22 at 1534 by Jane ShelleyBonny Stephanietonny SS DISCHARGE PLANNING SW CALL PATIENTS' SISTER MADELEINE LUCAS AT TO DISCUSS PATIENT'S DISCHARGE TODAY TO ACCEPTING SNF [facility] AT ABOUT 19:00. SW DISCUSSED WITH PATIENT SISTER THE PROCESS OF DISCHARGE TODAY FROM [facility] AND THE TIME THAT TRANSPORT IS BEEN SET UP FOR PATIENT TO [facility] FACILITY. SW ALSO REMINDED PATIENT'S SISTER ABOUT DISCUSSION ON ASSISTING PATIENT WITH FINDING A BOARD AND CARE FACILITY AFTER HE IS ABLE TO DISCHARGE FROM THE SNF FACILITY WHEN COMPLETING HIS TREATMENT. PER SISTER SHE AGREED AND STATED THAT SHE WILL BE VISITING PATIENT AND GETTING INVOLVED ON HIS MATTERS TO GET HIM SET UP WITH MORE BENEFITS WELL A BETTER HEALTH AND CARE FOR HIMSELF. SW PROVIDED PATIENT'S SISTER WITH SNF ADDRESS AND PHONE NUMBER PER HER REQUEST AND SW ALSO PROVIDED HER WITH RESOURCES FOR DPSS/IHSS AND COMMUNITY RESOURCES IN THE AREA. PATIENT'S SISTER WAS VERY PLEASED AND THANKFUL TO THESE MANAGEMENT TRAINEE WILLIAM. ENDED THE CALL AND MEET WITH PATIENT AT BEDSIDE TO INFORM PATIENT OF HIS ACCEPTANCE TO SNF. PATIENT WAS THANKFUL AND AGREED. SW/CM WILL FOLLOW UP NEEDED.
[2022-01-01 16:00] VITALS: BP 125/77
--- NOTE | 2022-01-01 17:05 | NUR ---
BLOOD GLUCOSE CHECK DONE. BS 186. SLIDING SCALE INSULIN ADMINISTERED.
--- NOTE | 2022-01-01 19:35 | NUR ---
ENDORSED PT TO KETTLE GIRL NURSE FOR CONTINUITY OF CARE. ALL NEEDS MET THROUGHOUT SHIFT. PT IS STABLE.
--- NOTE | 2022-01-01 20:00 | NUR ---
RECEIVED BEDSIDE REPORT FROM DAY NURSE REGARDING THE PT FOR CONTINUITY OF CARE. PT A/A/OX2,STILL FORGETFUL AND CONFUSED AT TIMES. PT NOT IN ANY DISTRESS AND NO COMPLAIN AT THIS TIME. PT LAYING IN BED WATCHING TV. FALL PRECAUTION IMPLEMENTED. REMINDED PT NOT TO GET OOB. PT VERBALIZED UNDERSTANDING BUT NEEDS REINFORCEMENT. CALL LIGHT WITHIN REACH. WILL CONTINUE OBSERVATION.
--- NOTE | 2022-01-01 22:00 | NUR ---
PT BLOOD SUGAR WAS CHECK EARLIER AND COVERED WITH RISS ORDERED. WILL CONTINUE TO OBSERVATION FOR ANY POSSIBLE HYPOGLYCEMIC REACTION FROM INSULIN.
--- NOTE | 2022-01-01 22:05 | NUR ---
PT SISTER MADELEINE LUCAS CALLED AND UPDATED HER WITH THE PT CONDITION WITH THE PATIENT PERMISSION. PT SISTER MADELEINE PHONE # .
[2022-01-02] VITALS: BP 134/77
--- NOTE | 2022-01-02 | NUR ---
PATIENT VITALS SIGNS STABLE, AFEBRILE, SATING 96% ON RA. NO COMPLAIN OF PAIN AT THIS TIME. CALL LIGHT WITHIN REACH. WILL CONTINUE OBSERVATION.
--- NOTE | 2022-01-02 02:00 | NUR ---
PATIENT ASLEEP AT THIS TIME. VISIBLE CHEST RISE AND FALL NOTED. PT NOT IN ANY DISTRESS. WILL CONTINUE OBSERVATION.
--- NOTE | 2022-01-02 04:00 | NUR ---
MADE ROUNDS AGAIN , PT STILL ASLEEP AND NOT IN ANY DISTRESS. WILL CONTINUE OBSERVATION
[2022-01-02 05:50] LABS: BASOPHILS % (AUTO) 0.4 % (0.0-2.0); EOSINOPHILS # (AUTO) 0.2 K/uL (0-0.4); EOSINOPHILS % (AUTO) 2.4 % (0.0-4.0); HEMATOCRIT 41.1 % (36-52); HEMOGLOBIN 14.5 g/dL (12.0-18.0); LYMPHOCYTES # (AUTO) 1.5 K/uL (2.0-11.5); LYMPHOCYTES % (AUTO) 15.6 % (20.5-51.1); MEAN CORPUSCULAR HEMOGLOBIN 33 pg (27-31); MEAN CORPUSCULAR HGB CONC 35 g/dL (33-37); MEAN CORPUSCULAR VOLUME 93.4 fL (80-94); MONOCYTES # (AUTO) 0.9 K/uL (0.8-1.0); NEUTROPHILS # (AUTO) 7.1 K/uL (1.8-7.7); NEUTROPHILS % (AUTO) 72.6 % (42.2-75.2); PLATELET COUNT (AUTO) 268 K/uL (140-450); RED CELL DISTRIBUTION WIDTH 13.4 % (11.6-13.7); WHITE BLOOD COUNT (AUTO) 9.8 K/uL (4.8-10.8)
[2022-01-02] MEDS: MORPHINE SULFATE 2 MG/ML SYR IVP PRN ×2 (06:09→13:19)
--- NOTE | 2022-01-02 06:19 | NUR ---
NO ACUTE EVENT THROUGHOUT THE NIGHT. PT STABLE AND NOT IN ANY DISTRESS. NO COMPLAIN AT THIS TIME. ALL NEEDS ATTENDED. WILL ENDORSE THE PATIENT TO THE ONCOMING NURSE FOR CONTINUITY OF CARE.
[2022-01-02] MEDS: BLOOD GLUCOSE MONITORING 1 DEV DEV FS SCH ×4 (06:26→22:01)
[2022-01-02 06:36] LABS: CARBON DIOXIDE 23.2 mmol/L (21-32); CREATININE 0.9 mg/dL (0.6-1.3); POTASSIUM 4.2 mmol/L (3.5-5.1)
--- NOTE | 2022-01-02 07:21 | NUR ---
ENDORSED PATIENT TO THE ONCOMING NURSE. PATIENT STABLE AND NOT IN DISTRESS. SIGNING OFF.
--- NOTE | 2022-01-02 07:33 | NUR ---
08\16\22 0800 PT AWAKE DISCUSSED PLAN OF CARE.[id number]
[2022-01-02 08:00] VITALS: BP 165/109
[2022-01-02] MEDS: GABAPENTIN 300 MG CAP PO SCH (09:05)
--- NOTE | 2022-01-02 09:50 | NUR ---
PT COMPLAINED OF FOLY , STABILIZED CATHETER ON HIS THIGH, URINE DRAINING. [id number]
--- NOTE | 2022-01-02 10:25 | NUR ---
REMOVED FOLY C\O TOO MUCH PAIN AND BLOODY URINE. WILL WATCH PT IF HE COULD URINATE. [id number]
[2022-01-02] MEDS: INSULIN LISPRO SLIDING SCALE 100 UNITS/ML VIAL SUBQ PRN ×2 (11:31→16:41)
--- NOTE | 2022-01-02 12:00 | NUR ---
PHYSICAL THERAPY CO-SIGN The Physical Therapy Progress Notes documented by Skip Tender have been reviewed. Reviewed/Co-Signed by: Trang Lopes Documentation Done by: MICHELA ARREDONDO PTA Addendum: 01/02/22 at 1200 by Trang Lopes PT Amended: Links added.
[2022-01-02] MEDS: GAUZE TP SCH (13:20)
--- NOTE | 2022-01-02 14:50 | NUR ---
01/02/22 RD FOLLOW UP COMPLETED PLEASE REFER TO NUTRITION ASSESSMENT UNDER CARE ACTIVITY FOR ESTIMATED NUTRITIONAL NEEDS. 1. CONTINUE CCHO 60 GM- RENAL DIET TOLERATED 2. RD RECOMMENDED PROSOURCE BID PER RD PROTOCOL 3. RD TO FOLLOW-UP 7 DAYS, LOW RISK REVIEWED BY PINA NG RD
[2022-01-02 16:00] VITALS: BP 138/69
--- NOTE | 2022-01-02 17:32 | NUR ---
BLADDER SCAN DONE AND THERE IS NO RESIDUAL, URINE OUTPUT FOR THE SHIFT IS 500. [id number]
--- NOTE | 2022-01-02 19:25 | NUR ---
RECEIVED ENDORSEMENT FROM DAY SHIFT NURSE FOR CONTINUITY OF PT CARE. PT IS AWAKE, ALERT/ORIENTED X 4 AND ABLE TO VERBALIZED NEEDS. SALINE LOCK 20G ON RIGHT ARM INTACT AND PATENT. CONTINUE MONITORING FOR SIDE EFFECT AFTER CHÁVEZ CATHETER DISCONTINUED.
--- NOTE | 2022-01-03 01:00 | NUR ---
PT IS STILL AWAKE AND WATCH TV. NO SOB OR DISTRESS.
--- NOTE | 2022-01-03 04:25 | NUR ---
BLADDER SCAN = 83ML URINE IN THE BLADDER.
[2022-01-03 05:38] LABS: BASOPHILS % (AUTO) 0.3 % (0.0-2.0); EOSINOPHILS # (AUTO) 0.2 K/uL (0-0.4); HEMATOCRIT 40.9 % (36-52); HEMOGLOBIN 14.1 g/dL (12.0-18.0); LYMPHOCYTES # (AUTO) 1.5 K/uL (2.0-11.5); LYMPHOCYTES % (AUTO) 16.7 % (20.5-51.1); MEAN CORPUSCULAR HEMOGLOBIN 32 pg (27-31); MEAN CORPUSCULAR HGB CONC 35 g/dL (33-37); MEAN CORPUSCULAR VOLUME 93.7 fL (80-94); MONOCYTES # (AUTO) 0.8 K/uL (0.8-1.0); MONOCYTES % (AUTO) 9.3 % (1.7-9.3); NEUTROPHILS # (AUTO) 6.2 K/uL (1.8-7.7); NEUTROPHILS % (AUTO) 71.7 % (42.2-75.2); PLATELET COUNT (AUTO) 277 K/uL (140-450); RED BLOOD CELL COUNT(AUTO) 4.37 MIL/uL (4.20-6.10); RED CELL DISTRIBUTION WIDTH 13.3 % (11.6-13.7); WHITE BLOOD COUNT (AUTO) 8.7 K/uL (4.8-10.8)
[2022-01-03 05:54] LABS: CARBON DIOXIDE 24.9 mmol/L (21-32); CREATININE 0.8 mg/dL (0.6-1.3); POTASSIUM 3.9 mmol/L (3.5-5.1)
--- NOTE | 2022-01-03 07:30 | NUR ---
PT IS ON STABLE CONDITION. SLEPT WELL AT NIGHT. SALINE LOCK AT RIGHT ARM 20G INTACT & PATENT. ALL SAFETY MEASURES IN PLACE. ENDORSED TO DAY SHIFT NURSE FOR CONTINUITY OF CARE.
--- NOTE | 2022-01-03 07:32 | NUR ---
RECEIVED REPORT FROM DOCK OPERATOR NURSE. PATIENT LYING DOWN IN BED, AWAKE. AAOX3, ROOM AIR, IV SITE INTACT, PATENT, ON SALINE LOCK. REVIEWED PLAN OF CARE WITH PATIENT. VERBALIZED UNDERSTANDING. SAFETY MEASURES IN PLACE, CALL LIGHT WITHIN REACH. WILL CONTINUE TO MONITOR.
[2022-01-03] MEDS: BLOOD GLUCOSE MONITORING 1 DEV DEV FS SCH ×4 (07:44→21:34)
[2022-01-03 08:00] VITALS: BP 135/67
[2022-01-03] MEDS: GABAPENTIN 300 MG CAP PO SCH (09:30)
--- NOTE | 2022-01-03 09:30 | NUR ---
SCHEDULED MEDICATIONS DUE GIVEN. WILL CONTINUE TO MONITOR.
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
[2022-01-03] MEDS: GAUZE TP SCH (12:51)
[2022-01-03] MEDS: INSULIN LISPRO SLIDING SCALE 100 UNITS/ML VIAL SUBQ PRN ×2 (12:53→21:36)
--- NOTE | 2022-01-03 12:53 | NUR ---
SCHEDULED MEDICATIONS DUE GIVEN. WILL CONTINUE TO MONITOR.
--- NOTE | 2022-01-03 13:29 | NUR ---
PHYSICAL THERAPY CO-SIGN The Physical Therapy Progress Notes documented by Supervisor Fiber Locking have been reviewed. Reviewed/Co-Signed by: Trang Lopes Documentation Done by: MICHELA ARREDONDO PTA Addendum: 01/03/22 at 1329 by Trang Lopes PT Amended: Links added.
[2022-01-03 16:00] VITALS: BP 150/96
[2022-01-03] MEDS: MORPHINE SULFATE 2 MG/ML SYR IVP PRN (16:39)
--- NOTE | 2022-01-03 16:39 | NUR ---
WOUND CHANGING, MORPHINE GIVEN AT THIS TIME. WILL CONTINUE TO MONITOR.
--- NOTE | 2022-01-03 19:35 | NUR ---
RECEIVED PT ENDORSEMENT FROM DAY SHIFT NURSE FOR CONTINUITY OF CARE. PT IS AWAKE, ALERT, ORIENTED X 4. PT ABLE TO VERBALIZED NEEDS. SALINE LOCK ON RIGHT ARM 20G INTACT AND PATENT. PATIENT'S WOUNDS COVERED WITH DRY AND CLEAN DRESSING. PATIENT DENIES OF PAIN. PATIENT IS ON STABLE CONDITION. CONTINUE TO MONITOR.
--- NOTE | 2022-01-03 19:36 | NUR ---
GAVE REPORT TO MDS NURSE NURSE FOR CONTINUITY OF CARE. PATIENT IN STABLE CONDITION.
--- NOTE | 2022-01-03 21:36 | NUR ---
BLOOD SUGAR CHECKED = 165 = 2 UNITS OF HUMALOG INSULIN ADMINISTERED PER ORDER OF SLIDING SCALE. PATIENT TOLERATES WELL, NO SIDE/ADVERSE REACTION.
[2022-01-04] VITALS: BP 142/98
--- NOTE | 2022-01-04 06:30 | NUR ---
BLADDER SCAN DONE THIS AM WITH 11 ML/HR RETAINING IN THE BLADDER.
--- NOTE | 2022-01-04 06:35 | NUR ---
BLOOD SUGAR CHECK = 142 = 0 SLIDING SCALE.
[2022-01-04 07:10] LABS: BASOPHILS % (AUTO) 0.2 % (0.0-2.0); EOSINOPHILS # (AUTO) 0.1 K/uL (0-0.4); EOSINOPHILS % (AUTO) 1.5 % (0.0-4.0); HEMATOCRIT 41.8 % (36-52); HEMOGLOBIN 14.6 g/dL (12.0-18.0); LYMPHOCYTES # (AUTO) 1.5 K/uL (2.0-11.5); LYMPHOCYTES % (AUTO) 15.8 % (20.5-51.1); MEAN CORPUSCULAR HEMOGLOBIN 33 pg (27-31); MEAN CORPUSCULAR HGB CONC 35 g/dL (33-37); MEAN CORPUSCULAR VOLUME 93.7 fL (80-94); MONOCYTES # (AUTO) 0.7 K/uL (0.8-1.0); MONOCYTES % (AUTO) 7.7 % (1.7-9.3); NEUTROPHILS # (AUTO) 7.2 K/uL (1.8-7.7); NEUTROPHILS % (AUTO) 74.8 % (42.2-75.2); PLATELET COUNT (AUTO) 323 K/uL (140-450); RED BLOOD CELL COUNT(AUTO) 4.46 MIL/uL (4.20-6.10); RED CELL DISTRIBUTION WIDTH 13.3 % (11.6-13.7); WHITE BLOOD COUNT (AUTO) 9.6 K/uL (4.8-10.8)
--- NOTE | 2022-01-04 07:22 | NUR ---
PT IS ON STABLE CONDITION, ALL SAFETY MEASURES IN PLACE. ENDORSED TO DAY SHIFT NURSE FOR CONTINUITY OF CARE.
[2022-01-04 07:23] LABS: ANION GAP 14.2 (8-16); CARBON DIOXIDE 23.9 mmol/L (21-32); CREATININE 0.9 mg/dL (0.6-1.3); POTASSIUM 4.1 mmol/L (3.5-5.1)
[2022-01-04] MEDS: BLOOD GLUCOSE MONITORING 1 DEV DEV FS SCH ×4 (07:57→21:40)
--- NOTE | 2022-01-04 11:13 | NUR ---
PHYSICAL THERAPY CO-SIGN The Physical Therapy Progress Notes documented by Physiatrist have been reviewed. Reviewed/Co-Signed by: Trang Lopes Documentation Done by: MICHELA ARREDONDO PTA Addendum: 01/04/22 at 1114 by Trang Lopes PT Amended: Links added.
[2022-01-04] MEDS: GABAPENTIN 300 MG CAP PO SCH (11:53)
[2022-01-04] MEDS: GAUZE TP SCH (13:00)
--- NOTE | 2022-01-04 19:30 | NUR ---
RECEIVED REPORT FROM DAY SHIFT NURSE. PATIENT IS A&O X4. PATIENT IS ON ROOM AIR, BREATHING NORMALLY WITH SYMMETRICAL RISE AND FALL OF CHEST. PATIENT IS CURRENTLY NOT RUNNING IV FLUIDS. BED IS IN LOWEST POSITION, WHEELS LOCKED, CALL LIGHT IN PLACE. WILL CONTINUE TO OBSERVE PATIENT.
[2022-01-04 20:00] VITALS: BP 127/79
--- NOTE | 2022-01-04 21:41 | NUR ---
BS WAS 141. NO INSULIN COVERAGE WAS NEEDED. PATIENT IS LYING SUPINE IN BED WATCHING TV. BREATHING IS NORMAL WITH SYMMETRICAL RISE AND FALL OF CHEST. WILL CONTINUE TO OBSERVE.
--- NOTE | 2022-01-05 | NUR ---
LOOKED IN ON PATIENT. PATIENT WAS SLEEPING. BREATHING IS NORMAL WITH SYMMETRICAL RISE AND FALL OF CHEST. BED IS IN LOWEST POSITION WITH SYMMETRICAL RISE AND FALL OF CHEST. WILL CONTINUE TO OBSERVE PATIENT.
--- NOTE | 2022-01-05 02:30 | NUR ---
LOOKED IN ON PATIENT. PATIENT WAS SLEEPING. PATIENT IS ON ROOM AIR, BREATHING IS NORMAL WITH SYMMETRICAL RISE AND FALL OF CHEST. NO IVF ARE RUNNING AT THIS TIME. PATIENT'S BED IS IN LOWEST POSITION, WHEELS LOCKED, CALL LIGHT IN PLACE. WILL CONTINUE TO OBSERVE PATIENT.
[2022-01-05 04:00] VITALS: BP 121/71
--- NOTE | 2022-01-05 05:00 | NUR ---
LOOKED IN ON PATIENT. PATIENT WAS AWAKE WATCHING TV. PATIENT ASKED ABOUT HIS DRESSINGS. HE WAS TOLD THAT HIS DRESSINGS LOOKED GOOD, THEY WERE DRY AND INTACT. HE SAID THANK YOU. PATIENT STATED HE WAS GOING TO TRY AND SLEEP A FEW MORE HOURS. PATIENT'S BREATHING WAS NORMAL WITH SYMMETRICAL RISE AND FALL OF CHEST. BED IS IN LOWEST POSITION, WHEELS LOCKED, CALL LIGHT IN PLACE. WILL CONTINUE TO OBSERVE PATIENT.
[2022-01-05] MEDS: BLOOD GLUCOSE MONITORING 1 DEV DEV FS SCH ×4 (07:09→20:12)
--- NOTE | 2022-01-05 07:09 | NUR ---
BS TAKEN. BS WAS 123, NO COVERAGE IS NEEDED. PATIENT IS LYING DOWN WATCHING TV. BREATHING IS NORMAL WITH SYMMETRICAL RISE AND FALL OF CHEST. WILL CONTINUE TO OBSERVE PATIENT.
[2022-01-05 07:20] LABS: BASOPHILS % (AUTO) 0.3 % (0.0-2.0); EOSINOPHILS # (AUTO) 0.2 K/uL (0-0.4); EOSINOPHILS % (AUTO) 1.6 % (0.0-4.0); HEMOGLOBIN 13.9 g/dL (12.0-18.0); LYMPHOCYTES # (AUTO) 1.5 K/uL (2.0-11.5); LYMPHOCYTES % (AUTO) 15.6 % (20.5-51.1); MEAN CORPUSCULAR HEMOGLOBIN 33 pg (27-31); MEAN CORPUSCULAR HGB CONC 35 g/dL (33-37); MONOCYTES # (AUTO) 0.9 K/uL (0.8-1.0); MONOCYTES % (AUTO) 8.9 % (1.7-9.3); NEUTROPHILS # (AUTO) 7.2 K/uL (1.8-7.7); NEUTROPHILS % (AUTO) 73.6 % (42.2-75.2); PLATELET COUNT (AUTO) 307 K/uL (140-450); RED BLOOD CELL COUNT(AUTO) 4.26 MIL/uL (4.20-6.10); RED CELL DISTRIBUTION WIDTH 13.6 % (11.6-13.7); WHITE BLOOD COUNT (AUTO) 9.8 K/uL (4.8-10.8)
--- NOTE | 2022-01-05 07:30 | NUR ---
RECEIVED BEDSIDE REPORT FROM TOP HAT BODY MAKER NURSE, PT RESTING, NO DISTRESS NOTED, ALERT ORIENTED ABLE TO LET NEEDS KNOWN. IV TO RIGHT FA 20G PATENT INTACT, SL. PT ON ROOM AIR, NO SOB NOTED, INITIAL ASSESSMENT DONE, ALL SAFETY PRECAUTION MET, CALL LIGHT WITHIN REACH, WILL CONTINUE TO MONITOR.
[2022-01-05 07:38] LABS: ANION GAP 12.2 (8-16); CARBON DIOXIDE 24.7 mmol/L (21-32); CREATININE 0.8 mg/dL (0.6-1.3); POTASSIUM 3.9 mmol/L (3.5-5.1)
--- NOTE | 2022-01-05 07:50 | NUR ---
ENDORSED TO DAY SHIFT NURSE FOR CONTINUITY OF CARE. PATIENT IS STABLE.
[2022-01-05 08:00] VITALS: BP 105/71
[2022-01-05] MEDS: GABAPENTIN 300 MG CAP PO SCH (08:21)
--- NOTE | 2022-01-05 08:21 | NUR ---
DUE MEDICATIONS ADMINISTERED, PT TOLERATED WELL, NO DISTRESS NOTED, WILL CONTINUE TO MONITOR.
--- NOTE | 2022-01-05 09:16 | NUR ---
POC DISCUSSED WITH DR. BELLO LEFT ARM AND LEFT THIGH YELLOW/LIGHT BROWN COLOR SLOUGH TISSUE, MAY BENEFIT FOR BEDSIDE DEBRIDEMENT. PER. DR. BELLO HE WILL CHECK.
[2022-01-05] MEDS: GAUZE TP SCH (13:01)
--- NOTE | 2022-01-05 14:24 | NUR ---
WILLIAM FAXED PACKET TO [facility] ([phone] FAX- [phone]) AND [facility] ([phone] FAX- [phone]) [facility] REVIEWING PACKETS FOR BOTH SNFS. Addendum: 01/08/22 at 1339 by Amado DIOP WILLIAM OUTREACHED TO [facility] WHO IS MANAGING ADMISSIONS FOR BOTH FACILITIES; [facility] AND [facility]; [facility] REPORTS NO AVAIL BEDS AT [facility] AN [facility] CAN NOT ACCOMMODATE PATIENTS NEEDS DUE TO LOW NURSING STAFF. Addendum: 01/08/22 at 1341 by Amado DIOP WILLIAM FAXED PACKET OVER TO [facility], [facility] [facility], [facility], [facility] AND [facility]. WILLIAM TO FOLLOW UP Addendum: 01/09/22 at 0825 by Amado DIOP WILLIAM OUTREACHED TO THE MEDICAL CENTER TO FOLLOW UP ON STATUS OF PACKET. THE MEDICAL CENTER REQUESTING IPA CONTACT INFO. WILLIAM PROVIDED THE MEDICAL CENTER WITH IPA CONTACT [phone]. THE MEDICAL CENTER TO FOLLOW UP. WILLIAM FOLLOWED UP WITH MIKALA JOHANSEN AND SPOKE WITH [facility]AW WHO REPORTED THAT SHE WOULD FOLLOW UP AFTER 9AM Addendum: 01/09/22 at 0841 by Amado DIOP WILLIAM FIELDED CALL FROM ESPERANZA AT THE MEDICAL CENTER WHO REPORTED NO BEDS AVAIL. AT THIS TIME. Addendum: 01/09/22 at 1116 by Amado DIOP WILLIAM OUTREACHED TO INTAKE AND ADMISSIONS AND SPOKE TO [facility] TO FOLLOW UP ON REFERRAL. [facility] REPORTS NO MALE BEDS AVAIL AT THIS TIME. Addendum: 01/09/22 at 1138 by Amado DIOP WILLIAM OUTREACHED TO [facility] AND SPOKE TO YOSELYN TO FOLLOW UP ON REFERRAL. [facility] REPORTS NO MALE BEDS AVAIL. WILLIAM OUTREACHED TO [facility] AND SPOKE WITH BRENDA. [facility] REPORTS THAT SHE WILL SPEAK WITH [employer] [employer] PROFESSOR AND RETURN PHONE CALL TO PROVIDE AN UPDATE. Addendum: 01/09/22 at 1402 by Amado DIOP WILLIAM SPOKE WITH TAYLOR AT [facility] WHO REPORTED THEY ACCEPTED PATIENT FOR 01/10. WILLIAM SPOKE WITH HORACE AT [facility] WHO REPORTED THAT SNF WOULD HAVE TO OBTAIN AUTHORIZATION AT [phone]. HORACE REPORTED TRANSPORTATION CONTRACT WITH [facility] AND CALL THE CAR. [facility] REPORTS CALL THE CARE DOES NOT REQUIRE AUTH AND RECOMMENDED CALL THE CAR FOR TRANSPORT. WILLIAM CONTACTED TAYLOR AND PROVIDED [facility]. Addendum: 01/10/22 at 0889 by Amado DIOP SPOKE WITH TAYLOR AT [facility] TO INQUIRE ON UPDATE. TAYLOR REPORTS BEING OUT OF THE OFFICE UNTIL NOON AND REPORTS THAT SHE WILL PROVIDE UPDATE ONCE IN OFFICE. WILLIAM TO FOLLOW UP Addendum: 01/10/22 at 1357 by Lisamonet Barragan SS FOLLOWED UP WITH TAYLOR WHO REPORTED THAT AUTH HAS BEEN OBTAINED. TAYLOR TO RETURN PHONE CALL WITH ROOM #, ACCEPTING , AND PHONE NUMBER FOR NURSE REPORTING Addendum: 01/10/22 at 1457 by Amado DIOP SPOKE WITH [facility] WHO PROVIDED AUTH [id number], ACCEPTING DR WILSON, ROOM 102B Addendum: 01/10/22 at 1530 by Amado Barragan SS TRANSPORTATION ARRANGED WITH CALL THE CAR [phone]. SPOKE WITH ELENA WHO SCHEDULED CASE THERAPIST FOR PATIENT AT 730PM, [employer]. WILL BE PROVIDING TRANSPORT TO [address] [address]. RESERVATION # [id number]. SW ENDORSED TO PATIENTS NURSE. CASE THERAPIST AT 7:30PM, ACCEPTING DR WILSON, ROOM 102B CALL REPORT NUMBER, Addendum: 01/10/22 at 1610 by Amado DIOP FAXED UPDATED DC ORDERS, WOUND CARE NOTES, PT NOTES AND MEDICATIONS.
[2022-01-05 16:00] VITALS: BP 153/90
--- NOTE | 2022-01-05 16:00 | NUR ---
WOUND CARE DONE, ALL DRESSINGS CHANGED, PT TOLERATED WELL. WILL CONTINUE TO MONITOR.
[2022-01-05] MEDS: MORPHINE SULFATE 2 MG/ML SYR IVP PRN (16:55)
--- NOTE | 2022-01-05 17:56 | NUR ---
BLADDERSCAN DONE, PT HAD NO RESIDUAL URINE. WILL CONTINUE TO MONITOR.
--- NOTE | 2022-01-05 18:56 | NUR ---
PHYSICAL THERAPY CO-SIGN The Physical Therapy Progress Notes documented by Optical Glass Etcher have been reviewed. Reviewed/Co-Signed by: Nohemy Vizcaino PT Documentation Done by:MICHELA ARREDONDO PTA REC: LONG TERM ([facility]) VS SNF Addendum: 01/05/22 at 1856 by Nohemy Vizcaino PT Amended: Links added.
--- NOTE | 2022-01-05 19:25 | NUR ---
ENDORSED PT TO LEAN SIX SIGMA SENIOR SPECIALIST NURSE FOR CONTINUOUS OF CARE.
--- NOTE | 2022-01-05 19:30 | NUR ---
RECEIVED REPORT FROM DAY SHIFT RN FOR CONTINUITY OF CARE. PT IS CURRENTLY ASLEEP. PT HAS MULTIPLE WOUNDS WITH DRESSING IN PLACE ON LEFT ARM, LEFT LEG, AND RIGHT FOOT. PT IS ON ROOM AIR NOT IN ANY DISTRESS. BREATHING EVEN AND UNLABORED. PT HAS RIGHT HAND 20 GAUGE SALINE LOCK. CALL LIGHT WITHIN REACH. ALL SAFETY MEASURES TAKEN. WILL CONTINUE TO MONITOR THE PT.
[2022-01-05 20:00] VITALS: BP 126/88
[2022-01-05] MEDS: INSULIN LISPRO SLIDING SCALE 100 UNITS/ML VIAL SUBQ PRN (20:11)
--- NOTE | 2022-01-05 20:19 | NUR ---
PT BS WAS 224. 4 UNITS OF HUMALOG WAS GIVEN. PT DENIES ANY PAIN AND HAS NO COMPLAINS. WILL CONTINUE TO MONITOR THE PT.
--- NOTE | 2022-01-06 01:25 | NUR ---
OBSERVED PT. PT IS SLEEPING COMFORTABLY IN BED. VISIBLE CHEST RISE AND FALL. NOT IN ANY DISTRESS. CALL LIGHT WITHIN REACH. ALL SAFETY MEASURES TAKEN. WILL CONTINUE TO MONITOR THE PT.
--- NOTE | 2022-01-06 02:03 | NUR ---
PT WANTED THE BLINDS CLOSED AND A WARM BLANKET. NEEDS PROVIDED. NO OTHER COMPLAINS. WILL CONTINUE TO MONITOR THE PT.
--- NOTE | 2022-01-06 05:13 | NUR ---
BLADDER SCAN DONE. 116 ML RESIDUAL.
[2022-01-06] MEDS: BLOOD GLUCOSE MONITORING 1 DEV DEV FS SCH ×4 (06:38→20:47)
[2022-01-06 07:08] LABS: ANION GAP 10.6 (8-16); CARBON DIOXIDE 25.6 mmol/L (21-32); POTASSIUM 4.2 mmol/L (3.5-5.1)
[2022-01-06 07:12] LABS: BASOPHILS % (AUTO) 0.4 % (0.0-2.0); EOSINOPHILS # (AUTO) 0.1 K/uL (0-0.4); EOSINOPHILS % (AUTO) 1.4 % (0.0-4.0); HEMOGLOBIN 13.7 g/dL (12.0-18.0); LYMPHOCYTES # (AUTO) 1.4 K/uL (2.0-11.5); MEAN CORPUSCULAR HEMOGLOBIN 33 pg (27-31); MEAN CORPUSCULAR HGB CONC 35 g/dL (33-37); MEAN CORPUSCULAR VOLUME 92.7 fL (80-94); MONOCYTES # (AUTO) 0.9 K/uL (0.8-1.0); MONOCYTES % (AUTO) 9.6 % (1.7-9.3); NEUTROPHILS # (AUTO) 6.7 K/uL (1.8-7.7); NEUTROPHILS % (AUTO) 73.6 % (42.2-75.2); PLATELET COUNT (AUTO) 312 K/uL (140-450); RED BLOOD CELL COUNT(AUTO) 4.21 MIL/uL (4.20-6.10); RED CELL DISTRIBUTION WIDTH 13.7 % (11.6-13.7); WHITE BLOOD COUNT (AUTO) 9.1 K/uL (4.8-10.8)
--- NOTE | 2022-01-06 07:29 | NUR ---
ENDORSED PT TO DAY SHIFT RN FOR CONTINUITY OF CARE. PT IS STABLE.
--- NOTE | 2022-01-06 07:30 | NUR ---
RECEIVED BEDSIDE REPORT FROM TEASEL SETTER NURSE, PT RESTING, NO DISTRESS NOTED, ALERT ORIENTED ABLE TO LET NEEDS KNOWN. IV TO RIGHT FA 20G PATENT INTACT, SL. PT ON ROOM AIR, NO SOB NOTED, INITIAL ASSESSMENT DONE, ALL SAFETY PRECAUTION MET, CALL LIGHT WITHIN REACH, WILL CONTINUE TO MONITOR.
[2022-01-06 08:00] VITALS: BP 138/73
[2022-01-06] MEDS: GABAPENTIN 300 MG CAP PO SCH (09:30)
[2022-01-06] MEDS: GAUZE TP SCH (12:49)
--- NOTE | 2022-01-06 13:30 | NUR ---
SEEN AND EXAMINED BY DR LOBATO, ORDERS NOTED
--- NOTE | 2022-01-06 13:45 | NUR ---
WOUND CARE DONE
[2022-01-06 16:00] VITALS: BP 129/66
--- NOTE | 2022-01-06 18:01 | NUR ---
PT RESTING IN BED, NO C/O PAIN, NO RESPIRATORY DISTRESS
--- NOTE | 2022-01-06 19:30 | NUR ---
RECEIVED BEDSIDE REPORT FROM DAY SHIFT RN FOR CONTINUITY OF CARE. PT IS AWAKE. PT IS AAOX4 ON RA. PT HAS RIGHT HAND 20 GAUGE SL. PT HAS MULTIPLE WOUNDS WITH DRESSINGS ON LEFT ARM, LEFT LEG, AND RIGHT FOOT. PT IS AWAKE OF PROCEDURE TO BE DONE TOMORROW. PT KNOWS HE WILL BE NPO MIDNIGHT. PLAN OF CARE DISCUSSED. ALL QUESTIONS ANSWERED. WILL CONTINUE TO MONITOR THE PT.
[2022-01-06 20:00] VITALS: BP 154/94
[2022-01-06] MEDS: INSULIN LISPRO SLIDING SCALE 100 UNITS/ML VIAL SUBQ PRN (20:47)
--- NOTE | 2022-01-06 21:00 | NUR ---
PT BLOOD GLUCOSE IS 159. INSULIN GIVEN PER PROTOCOL. NO OTHER COMPLAINS FROM PT. WILL CONTINUE TO MONITOR.
[2022-01-07] MEDS: MORPHINE SULFATE 2 MG/ML SYR IVP PRN (00:49)
--- NOTE | 2022-01-07 00:55 | NUR ---
PT COMPLAINED OF ARM PAIN 8/10. GAVE PRN MORPHINE. NO OTHER COMPLAINS.
--- NOTE | 2022-01-07 02:40 | NUR ---
PT OBSERVED. PT IS SLEEPING COMFORTABLY IN BED. VISIBLE RISE AND CHEST FALL. NO DISTRESS. CALL LIGHT WITHIN REACH. WILL CONTINUE TO MONITOR THE PT.
[2022-01-07 04:00] VITALS: BP 116/73
--- NOTE | 2022-01-07 06:11 | NUR ---
BLOOD GLUCOSE CHECKED AND IT WAS AT 114. NO COVERAGE NEEDED.
[2022-01-07] MEDS: BLOOD GLUCOSE MONITORING 1 DEV DEV FS SCH ×4 (06:39→20:46)
--- NOTE | 2022-01-07 07:23 | NUR ---
ENDORSED PT TO DAY SHIFT RN FOR CONTINUITY OF CARE. PT IS STABLE.
[2022-01-07] MEDS: GABAPENTIN 300 MG CAP PO SCH (09:35)
[2022-01-07] MEDS: GAUZE TP SCH (13:36)
[2022-01-07 16:00] VITALS: BP 131/84
[2022-01-07] MEDS: INSULIN LISPRO SLIDING SCALE 100 UNITS/ML VIAL SUBQ PRN ×2 (16:50→20:46)
--- NOTE | 2022-01-07 19:15 | NUR ---
RECEIVED BEDSIDE REPORT FROM DAY SHIFT NURSE. PATIENT IS AWAKE, ALERT, AND COOPERATIVE. RESPIRATION EVEN UNLABORED ON ROOM AIR. NO DISTRESS NOTED. SKIN IS WARM AND DRY. IV PATENT AND INTACT. DRESSING NOTED DRY AND INTACT. PLAN OF CARE DISCUSSED. ALL SAFETY MEASURES IN PLACE. BED IS AT LOW POSITION. CALL LIGHT WITHIN REACH. WILL CONTINUE TO MONITOR.
--- NOTE | 2022-01-07 19:39 | NUR ---
ENDORSE PATIENT TO PM SHIFT NURSE WHILE PATIENT REST IN BED, STABLE, PIV R. HAND SALINE LOCK, L. LOWER EXTREMITY, R. ANKLE, WOUND DRESSING CHANGED.
[2022-01-07 19:53] LABS: BASOPHILS # (AUTO) 0.1 K/uL (0.00-0.22); BASOPHILS % (AUTO) 1.4 % (0.0-2.0); EOSINOPHILS # (AUTO) 0.1 K/uL (0-0.4); EOSINOPHILS % (AUTO) 1.2 % (0.0-4.0); HEMATOCRIT 39.6 % (36-52); LYMPHOCYTES # (AUTO) 1.3 K/uL (2.0-11.5); LYMPHOCYTES % (AUTO) 16.2 % (20.5-51.1); MEAN CORPUSCULAR HEMOGLOBIN 33 pg (27-31); MEAN CORPUSCULAR HGB CONC 35 g/dL (33-37); MEAN CORPUSCULAR VOLUME 93.5 fL (80-94); MONOCYTES # (AUTO) 0.7 K/uL (0.8-1.0); MONOCYTES % (AUTO) 9.1 % (1.7-9.3); NEUTROPHILS # (AUTO) 5.8 K/uL (1.8-7.7); NEUTROPHILS % (AUTO) 72.1 % (42.2-75.2); PLATELET COUNT (AUTO) 329 K/uL (140-450); RED BLOOD CELL COUNT(AUTO) 4.24 MIL/uL (4.20-6.10); RED CELL DISTRIBUTION WIDTH 13.3 % (11.6-13.7)
[2022-01-07 20:13] LABS: ANION GAP 10.4 (8-16); CARBON DIOXIDE 24.5 mmol/L (21-32); CREATININE 0.9 mg/dL (0.6-1.3); POTASSIUM 3.9 mmol/L (3.5-5.1)
[2022-01-07 20:17] LABS: PROTHROMBIN TIME 11.1 secs (10.8-13.4)
--- NOTE | 2022-01-07 21:45 | NUR ---
PT IS HUNGRY, PROVIDED SANDWICH, EDUCATED PT THAT AFTER MIDNIGHT HE WILL BE NPO. PATIENT VERBALIZES UNDERSTANDING WILL CONTINUE TO MONITOR.
--- NOTE | 2022-01-07 22:45 | NUR ---
MADE ROUNDS, PATIENT IS AWAKE, WATCHING TV. NO DISTRESS NOTED. WILL CONTINUE TO MONITOR
--- NOTE | 2022-01-08 01:10 | NUR ---
WOUND CARE PROVIDED. PICTURE TAKEN.
[2022-01-08] MEDS: MORPHINE SULFATE 2 MG/ML SYR IVP PRN (02:13)
--- NOTE | 2022-01-08 02:15 | NUR ---
PATIENT COMPLAINED OF PAIN 10/10 FROM HIS WOUND. PRN PAIN MEDS GIVEN PER ORDER. WILL CONTINUE TO MONITOR.
--- NOTE | 2022-01-08 02:55 | NUR ---
MADE ROUNDS. PATIENT SLEEPING RESPIRATION EVEN UNLABORED ON RA. NO DISTRESS NOTED
[2022-01-08 04:00] VITALS: BP 151/84
--- NOTE | 2022-01-08 04:20 | NUR ---
VITALS WERE TAKEN. NO DISTRESS NOTED. WILL CONTINUE TO MONITOR
--- NOTE | 2022-01-08 05:55 | NUR ---
AM CARE PROVIDED
[2022-01-08] MEDS: BLOOD GLUCOSE MONITORING 1 DEV DEV FS SCH ×4 (06:33→20:49)
--- NOTE | 2022-01-08 07:03 | NUR ---
ENDORSED PATIENT TO DAY SHIFT NURSE, FOR CONTINUITY OF CARE
[2022-01-08 08:00] VITALS: BP 140/84
[2022-01-08] MEDS: GABAPENTIN 300 MG CAP PO SCH (09:42)
--- NOTE | 2022-01-08 10:47 | NUR ---
POC DISCUSSED WITH PRIMARY RN ERASMO DOMINGUEZ. SCHEDULE FOR DEBRIDEMENT TODAY AROUND 12 NOON.
[2022-01-08] MEDS ORDERED: LIDOCAINE 1% 500 MG/50 ML VIAL ONE (12:04)
[2022-01-08] MEDS ORDERED: BUPIVACAINE-MPF 0.25% 30 ML VIAL INJ ONE (12:04)
[2022-01-08] MEDS ORDERED: fentaNYL citrate 0.05 MG/ML VIAL ONE ×2 (12:05→12:06)
[2022-01-08] MEDS ORDERED: MIDAZOLAM 5 MG/5 ML VIAL ONE (12:06)
[2022-01-08] MEDS: fentaNYL citrate 0.05 MG/ML VIAL IVP ONE ×2 (12:36→13:45)
--- NOTE | 2022-01-08 13:24 | NUR ---
PATIENT RETURN FROM OR DEBRIDEMENT PROCEDURE W/ NO ACUTE DISTRESS NOTED. PER OR NURSE, NO SEDATION FOR PROCEDURE EXCEPT FENTANYL, MIDAZOLAM & BUPIVACAINE. PATIENT TOLERATE PROCEDURE AND LUNCH BROUGHT TO PATIENT SHORTLY AFTER PATIENT RETURN. WILL CONTINUE TO MONITOR
[2022-01-08] MEDS ORDERED: MIDAZOLAM 2 MG/2 ML VIAL IVP ONE (13:40)
[2022-01-08 16:00] VITALS: BP 134/90
[2022-01-08] MEDS: INSULIN LISPRO SLIDING SCALE 100 UNITS/ML VIAL SUBQ PRN ×2 (17:25→20:47)
--- NOTE | 2022-01-08 19:36 | NUR ---
ENDORSE PATIENT TO PM SHIFT NURSE WHILE PATIENT REST IN BED, STABLE, PIV R. HAND SALINE LOCK, L. LOWER EXTREMITY, L.ARM, R. ANKLE, WOUND DEBRIDED PROCEDURE DONE.
--- NOTE | 2022-01-08 19:37 | NUR ---
RECEIVED PT FROM AM NURSE FOR CONTINUITY OF CARE.PT IS STABLE
--- NOTE | 2022-01-08 21:30 | NUR ---
ALL SCHEDULED MEDICATIONS GIVEN,NO ADVERSE REACTIONS NOTED
--- NOTE | 2022-01-09 02:00 | NUR ---
PATIENT ASLEEP,NO S/SX OF DISTRESS NOTED, ALL SAFETY MEASURES IN PLACE,NO DISTRESS NOTED
--- NOTE | 2022-01-09 03:00 | NUR ---
PATIENT ASLEEP,BREATHING EVEN AND UNLABORED,NO DISTRESS NOTE
[2022-01-09 04:00] VITALS: BP 139/83
--- NOTE | 2022-01-09 06:00 | NUR ---
PATIENT IS AWAKE ,NO COMPLAIN OF PAIN,BREATHING EVEN AND UNLABORED,NO DISTRESS NOTED
[2022-01-09] MEDS: BLOOD GLUCOSE MONITORING 1 DEV DEV FS SCH ×4 (06:27→21:41)
--- NOTE | 2022-01-09 07:20 | NUR ---
RECEIVED ENDORSEMENT FROM SMALL BUSINESS REPRESENTATIVE NURSE FOR CONTINUITY OF CARE. PATIENT ALERT ORIENTED NO DISTRESS NOTED. RESPIRATION EVEN AND NOT LABORED NO SHORTNESS OF BREATH ON ROOM AIR. IV SITE ON RIGHT HAND GAGE20 SALINE LOCK. ALL SAFETY MEASURE IN PLACE.
--- NOTE | 2022-01-09 08:35 | NUR ---
DRESSING ON HIS LEFT THIGH PER PATIENT GET WET WHEN HE USE URINAL DRESSING CHANGE PATIENT TOLERATED WELL.
[2022-01-09] MEDS: GABAPENTIN 300 MG CAP PO SCH (09:30)
--- NOTE | 2022-01-09 09:32 | NUR ---
PATIENT ALERT GIVEN HIS GABAPENTIN ORDER TOLERATED WELL. DENIES PAIN AT THIS TIME.
[2022-01-09] MEDS: INSULIN LISPRO SLIDING SCALE 100 UNITS/ML VIAL SUBQ PRN ×2 (12:07→21:41)
--- NOTE | 2022-01-09 12:15 | NUR ---
PATIENT ALERT EATING LUNCH GIVEN HIS INSULIN COVERAGE FOR BLOOD SUGAR OF 159 CALL LIGHT WITH IN EASY REACH.
--- NOTE | 2022-01-09 14:15 | NUR ---
01/09/22 RD FOLLOW UP COMPLETED PLEASE REFER TO NUTRITION ASSESSMENT UNDER CARE ACTIVITY FOR ESTIMATED NUTRITIONAL NEEDS. 1. CONTINUE WITH REGULAR DIET TOLERATED PROTOCOL 2. MONITOR BLOOD GLUCOSE LEVELS, IF ALTERED RECOMMEND CCHO [address] TO FOLLOW-UP 7 DAYS, LOW RISK REVIEWED BY PINA NG RD
[2022-01-09 16:00] VITALS: BP 134/76
--- NOTE | 2022-01-09 16:15 | NUR ---
PATIENT ASLEEP NO DISTRESS NOTED. CALL LIGHT WITH IN EASY REACH.
--- NOTE | 2022-01-09 19:24 | NUR ---
PATIENT AWAKE NO DISTRESS NOTED. GAVE REPORT TO HYDROCHLORIC AREA SUPERVISOR NURSE FOR CONTINUITY OF CARE.
--- NOTE | 2022-01-09 19:25 | NUR ---
RECEIVED PATIENT FROM AM NURSE FOR CONTINUITY OF CARE. PT IS STABLE
[2022-01-09 20:00] VITALS: BP 126/80
[2022-01-10] MEDS ORDERED: HYDROcodone/APAP 5/325 MG 1 TAB TAB PO PRN (00:25)
[2022-01-10] MEDS: MORPHINE SULFATE 2 MG/ML SYR IVP PRN ×2 (01:56→10:49)
[2022-01-10 04:00] VITALS: BP 150/91
--- NOTE | 2022-01-10 06:00 | NUR ---
PATIENT AWAKE,NO COMPLAIN OF PAIN,NO DISTRESS NOTED
[2022-01-10] MEDS: BLOOD GLUCOSE MONITORING 1 DEV DEV FS SCH ×3 (06:42→16:30)
--- NOTE | 2022-01-10 07:28 | NUR ---
RECEIVED REPORT FROM ATHLETICS DIRECTOR NURSE FOR CONTINUITY OF CARE. PT IN BED AT THIS TIME. RESPIRATIONS EVEN AND UNLABORED ON ROOM AIR. NO SIGNS OF DISTRESS NOTED. PT IS ALERT AND ORIENTED X4, ABLE TO FOLLOW COMMANDS, ABLE TO MAKE NEEDS KNOWN. ABD IS NONTENDER, NONDISTENDED WITH BOWEL SOUNDS NOTED. LAST BOWEL MOVEMENT WAS THIS MORNING. PT UTILIZES URINAL AT BEDSIDE. PT HAS IV TO R HAND, 20 G, SALINE LOCKED. CALL LIGHT WITHIN REACH. ALL SAFETY MEASURES IN PLACE. WILL CONTINUE TO MONITOR.
[2022-01-10 08:00] VITALS: BP 179/111
[2022-01-10] MEDS: GABAPENTIN 300 MG CAP PO SCH (08:35)
--- NOTE | 2022-01-10 08:37 | NUR ---
ADMINISTERED SCHEDULED MEDICATIONS. EDUCATED PT ON MEDS ADMINISTERED. PT VERBALIZED UNDERSTANDING. WILL CONTINUE TO MONITOR.
[2022-01-10] MEDS ORDERED: hydrALAZINE 20 MG/ML VIAL IVP PRN (09:25)
--- NOTE | 2022-01-10 09:55 | NUR ---
PT BP ELEVATED. DR PRIETO MADE AWARE. NEW ORDERS PLACE. HYDRALAZINE IVP. RN COVERING MADE AWARE. WILL CONTINUE TO MONITOR.
--- NOTE | 2022-01-10 10:00 | NUR ---
BP ELEVATED, HYDRALAZINE IVP PRN GIVEN AT THIS TIME. WILL CONTINUE TO MONITOR.
[2022-01-10] MEDS ORDERED: ALUMINUM HYD/MAG/SIMETHICONE 30 ML UDC PO PRN (10:15)
[2022-01-10] MEDS ORDERED: lisinopriL 5 MG TAB PO SCH (10:50)
--- NOTE | 2022-01-10 10:50 | NUR ---
MET WITH DR. PRIETO AT BED SIDE, ALL S/P DEBRIDEMENT WOUNDS CHECKED BY DOCTOR WELL THE RIGHT LATERAL LEG/FOOT AND 4TH DIGIT TOE GANGRENE WOUND. RECOMMEND ARTERIAL ULTRA SOUND TO R/O VASCULAR DISEASE. RECOMMEND WOUND CARE TX -CLEANSE LEFT ARM, LEFT ANTERIOR THIGH, LEFT LE AND LEFT ANKLE AREAS AND RIGHT LATERAL FOOT WOUNDS WITH NS, PAT DRY AND APPLY THERAHONEY GEL TO WOUNDS WITH OIL EMULSION DRESSING, COVER WITH DRY DRESSING AND WRAP WITH KERLIX ROLL, SECURED WITH TAPE DAILY AND PRN IF SOILING Addendum: 01/10/22 at 1356 by Delvin Doty RN (Grace) INTEGUMENTARY: -2ND DEGREE BURN TO LEFT FOREARM PARTIAL THICKNESS SKIN LOSS 11X6X0.1CM, IRREGULAR SHAPE, WOUND BED 80% RED GRANULATION TISSUE WITH 20% SCATTERED LIGHT YELLOW SLOUGH TISSUE, WOUND EDGE FLAT, ATTACHED, ESTEFANY WOUND SKIN HEALING SCAR TISSUE, PINK AND MOIST. NO ERYTHEMA, NO EDEMA - LEFT THIGH FULL THICKNESS SKIN LOSS 17X5X0.3CM, IRREGULAR SHAPE, WOUND BED 70% RED TISSUE AND 30 % LIGHT YELLOW/BARCENAS SLOUGH TISSUE, MOIST, NO ODOR, WOUND EDGE FLAT, ATTACHED, ESTEFANY WOUND SKIN INTACT, NO EDEMA -2ND DEGREE BURN TO LEFT MEDIAL ANKLE, PARTIAL THICKNESS SKIN LOSS 3X2.5X0.1CM, OVAL SHAPE, WOUND BED 100% RED TISSUE, MOIST, NO ODOR, WOUND EDGE FLAT, ATTACHED, ESTEFANY WOUND SKIN INTACT, TRACE EDEMA. -2ND DEGREE BURN TO LEFT LOWER LEG PARTIAL THICKNESS SKIN LOSS WITH LARGEST 2X1X0.1CM, WOUND BED 100% RED TISSUE, MOIST, NO ODOR, WOUND EDGE FLAT, ATTACHED, ESTEFANY WOUND SKIN DRY STABLE SCABS NO EDEMA. -2ND DEGREE BURN TO RIGHT FLANK HEALED. -RIGHT LE TO LATERAL ANKLE AND FOOT PREVIOUS RUPTURED BLISTERING SKIN TODAY PARTIAL THICKNESS SKIN LOSS,27x7.5x0.1cm WOUND BED 100% BLACK DRY GANGRENE TISSUE, NO ODOR, WOUND EDGE FLAT, ATTACHED, ESTEFANY WOUND SKIN, INTACT, NO EDEMA. -RIGHT 4TH DIGIT TOE 1.5X1.5CM GANGRENE.
--- NOTE | 2022-01-10 11:50 | NUR ---
ORDERS PLACED FOR US ABD AND US LOWER EXTREMITY. RECEIVED CALL FROM [employer] THAT PT NEEDS TO BE NPO FOR THIS. PT MADE AWARE OF NPO STATUS AND REASON FOR NPO AT THIS TIME. WILL CONTINUE TO MONITOR.
[2022-01-10] MEDS: INSULIN LISPRO SLIDING SCALE 100 UNITS/ML VIAL SUBQ PRN (11:57)
[2022-01-10] MEDS ORDERED: THERAHONEY GEL 42.5 GM TP PRN (12:05)
[2022-01-10] MEDS ORDERED: Z-GUARD PASTE TP SCH (13:00)
[2022-01-10] MEDS ORDERED: THERAHONEY GEL 42.5 GM TP SCH (13:00)
--- NOTE | 2022-01-10 13:53 | NUR ---
PT CALLED NURSE ASKING WHERE HIS LUNCH WAS. REMINDED PT OF NPO STATUS AND REASON FOR NPO STATUS. PT VERBALIZED UNDERSTANDING. WILL CONTINUE TO MONITOR.
--- NOTE | 2022-01-10 14:00 | NUR ---
CALLED [facility] FOR ETA DUE TO PT CONTINUE CALLING STATING HE IS HUNGRY. WAS INFORMED BY TECH THAT THEY WILL BE ON UNIT IN 10 MIN. PT MADE AWARE.
[2022-01-10 14:17] LABS: AMYLASE 53 U/L (25-115); LIPASE 89 U/L (73-393)
[2022-01-10 16:00] VITALS: BP 138/86
--- NOTE | 2022-01-10 16:11 | NUR ---
PT HAS DISCHARGE ORDER. WAS INFORMED BY DOOR MANAGER THAT PT WAS GOING TO BE DISCHARGED TONIGHT. [facility]. SPOKE WITH LINDA. INFORMED HER THAT PT WILL BE PICKED UP AT 1930. ANSWERED ALL QUESTIONS.
--- NOTE | 2022-01-10 18:34 | NUR ---
WENT OVER DISCHARGE PAPERWORK WITH PT. ANSWERED ALL QUESTIONS. PT SIGNED ALL PAPERWORK. AWAITING [facility] AT 1930.
--- NOTE | 2022-01-10 19:22 | NUR ---
PT DISCHARGED TO [facility]. ALL BELONGINGS TAKEN UPON DISCHARGE. IV REMOVED.
[2022-01-11] MEDS ORDERED: SKINTEGRITY HYDROGEL TP SCH (13:00)
== END 2022-01-10 19:15 | DRG 844 ==
LOC: MED 20:40 → MTU 23:33 → MMU 12-25 05:20 → MTU 12-29 20:15 → MMU 01-01 21:11 → MTU 01-03 11:30 → MMU 01-03 11:40 → MTU 01-04 16:40
PROVIDERS: ADMIT Family Medicine; ATTEND Family Medicine
PROC: 0JBR0ZZ Excision of Left Foot Subcutaneous Tissue and Fascia, Open Approach (ICD-10-PCS; 2022-01-08)
PROC: 0JBQ0ZZ Excision of Right Foot Subcutaneous Tissue and Fascia, Open Approach (ICD-10-PCS; 2022-01-08)
PROC: 0JBM0ZZ Excision of Left Upper Leg Subcutaneous Tissue and Fascia, Open Approach (ICD-10-PCS; principal; 2022-01-08 12:00)
DX: T22.20XA Burn of second degree of shoulder and upper limb, except wrist and hand, unspecified site, initial encounter (principal); N17.0 Acute kidney failure with tubular necrosis; A41.9 Sepsis, unspecified organism; G92.9 Unspecified toxic encephalopathy; E87.0 Hyperosmolality and hypernatremia; M62.82 Rhabdomyolysis; I96 Gangrene, not elsewhere classified; S91.301A Unspecified open wound, right foot, initial encounter; E86.1 Hypovolemia; T21.23XA Burn of second degree of upper back, initial encounter; N39.0 Urinary tract infection, site not specified; F10.20 Alcohol dependence, uncomplicated; Y90.9 Presence of alcohol in blood, level not specified; Z20.822 Contact with and (suspected) exposure to COVID-19; X08.8XXA Exposure to other specified smoke, fire and flames, initial encounter; X58.XXXA Exposure to other specified factors, initial encounter; Y93.89 Activity, other specified; Y92.89 Other specified places as the place of occurrence of the external cause; Y99.8 Other external cause status; Z59.00 Homelessness unspecified
CPT/HCPCS: 36415; 36600; 70450; 71045; 76705; 76770; 80048; 80053; 80305; 81001; 82150; 82550; 82553; 82570; 82575; 82948; 83605; 83690; 83735; 83930; 83935; 84100; 84300; 85025; 85610; 85730; 87040; 87070; 87081; 88304; 93005; 93925; 96365; 96366; 96367; 96375; 97110; 97112; 97116; 97530; 99291; A6248; G0480; G0482; J0360; J0696; J2001; J2250; J2270; J2543; J3010; J3370; J3490; J7030; J7060; Q0092